=== PATIENT | female | born 1965 | race African-American/Black ===

== ENCOUNTER → 2016-09-25 | Outpatient (CLI) | payer MEDICARE, OTHER ==
--- NOTE | 2016-09-25 16:37 | XR ---
Right hip HISTORY: Right hip pain 2 views of the right hip No comparisons There is some marginal spurring present, joint space loss. Alignment and bone mineralization are main tained. There may be subchondral geode formation, difficult to exclude a small loose body or possibly nonunited ossification center at the lateral acetabulum. IMPRESSION: Mild osteoarthritis is suspected. CT or MRI may be of benefit. Additional findings above.
== END | disposition home or self-care (01) ==
LOC: RADXRMAIN 12:55
PROVIDERS: ATTEND Internal Medicine
DX: M25.551 Pain in right hip (principal)
CPT/HCPCS: 73502

== ENCOUNTER → 2016-10-03 | Outpatient (CLI) | payer MEDICARE, OTHER ==
--- NOTE | 2016-10-03 17:24 | CT ---
EXAMINATION TYPE: CT hip RT wo con DATE OF EXAM: 10/03/2016 1:49 PM COMPARISON: X-ray 09/25/2016 HISTORY: Rt hip pain, abn xray CT DLP: 334.6 mGycm Automated exposure control for dose reduction was used. FINDINGS: No acute fractures are evident. The femoral head articulates with the acetabulum. There is loss of manjit int space. Ossification is lateral to the acetabulum anterior border. No intracapsular calcification is identified. IMPRESSION: MODERATE OSTEOARTHRITIC DEGENERATIVE CHANGE RIGHT HIP
== END | disposition home or self-care (01) ==
LOC: RADCTMAIN 13:21
PROVIDERS: ATTEND Internal Medicine
DX: M16.11 Unilateral primary osteoarthritis, right hip (principal)

== ENCOUNTER 2016-10-15 23:02 | Emergency (ER) | payer MEDICARE, OTHER ==
[2016-10-15 23:06] VITALS: RESP 20
[2016-10-15] MEDS ORDERED: KETOROLAC 30 MG/ML 1 ML VIAL IVP STA (23:24)
[2016-10-15] MEDS ORDERED: SODIUM CHLORIDE 0.9% 1,000 ML IV STA (23:24)
[2016-10-15] MEDS ORDERED: ONDANSETRON 4 MG/2 ML VIAL IVP STA (23:24)
[2016-10-15] MEDS ORDERED: HYDROmorphone 1 MG/ML 1 ML SYRINGE IVP STA (23:24)
--- NOTE | 2016-10-15 23:31 | ED ---
Abdominal Pain HPI - General Chief Complaint: Abdominal Pain Stated Complaint: flank pain/vomiting Time Seen by Provider: 10/15/16 23:21 Source: patient, RN notes reviewed Mode of arrival: wheelchair Limitations: no limitations - History of Present Illness Initial Comments: 51-year-old female presents to the emergency Department chief complaint of left- sided flank pain. Patient states this started today. with NAUSEA VOMITING. PATIENT DENIES ANY CHANGES IN URINATION. PATIENT HAS NOT TENDON LEFT FLANK AREA. SHE HAS NOT NOTICED ANY BLOOD AND URINE SHE'S NEVER HAD ANYTHING LIKE THIS BEFORE. PATIENT STATES SHE TRIED RUNNERS WITH NO IMPROVEMENT. PATIENT STATES STABBING PAIN THAT IS CONSTANT AND SOMETIMES CRAMPING. Patient denies any recent fever, chills, shortness of breath, chest pain, back pain, numbness or tingling, dysuria or hematuria, constipation or diarrhea, headaches or visual changes, or any other current symptoms. - Related Data Home Medications Medication Instructions Recorded Confirmed Hydrochlorothiazide 25 mg PO DAILY 04/05/15 07/01/16 Phentermine HCl [Adipex-P] 37.5 mg PO QAM 04/05/15 07/01/16 metFORMIN HCL [Glucophage] 500 mg PO DAILY 04/05/15 07/01/16 ALPRAZolam [Xanax] 0.5 mg PO DAILY 05/04/16 07/01/16 Cyanocobalamin [Vitamin B-12 1,000 mcg IM Q30D 05/04/16 07/01/16 Injection] Cyanocobalamin [Vitamin B-12] 500 mcg PO DAILY 05/04/16 07/01/16 Hair/Skin/Nails 1 tab PO DAILY 05/04/16 07/01/16 Ibuprofen [Motrin] 800 mg PO Q8H PRN 05/04/16 07/01/16 HYDROcodone/APAP 10-325MG [[place] 1 tab PO Q6H PRN 10/15/16 10/15/16 10-325] Previous Rx's Medication Instructions Recorded Hydrocodone/Acetaminophen [[place] 1 each PO Q6HR PRN #20 tab 10/16/16 5-325] Ketorolac [Toradol] 10 mg PO Q6HR #20 tab 10/16/16 Ondansetron Odt [Zofran ODT] 4 mg PO Q8HR PRN #20 tab 10/16/16 Tamsulosin [Flomax] 0.4 mg PO DAILY #5 cap 10/16/16 Allergies Allergy/AdvReac Type Severity Reaction Status Date / Time Penicillins Allergy Unknown Verified 07/01/16 12:13 Review of Systems ROS Statement: Those systems with pertinent positive or pertinent negative responses have been documented in the HPI. ROS Other: All systems not noted in ROS Statement are negative. Past Medical History Past Medical History: No Reported History History of Any Multi-Drug Resistant Organisms: None Reported Past Surgical History: Joint Replacement, Orthopedic Surgery Additional Past Surgical History / Comment(s): uterine cyst Past Psychological History: No Psychological Hx Reported Smoking Status: Current every day smoker Past Alcohol Use History: None Reported Past Drug Use History: None Reported General Exam - General Exam Comments Initial Comments: General: The patient is awake and alert, in no distress, and does not appear acutely ill. Eye: Pupils are equal, round and reactive to light, extra-ocular movements are intact; there is normal conjunctiva bilaterally. No signs of icterus. Ears, nose, mouth and throat: There are moist mucous membranes. Neck: The neck is supple, there is no tenderness. Cardiovascular: There is a regular rate and rhythm. No murmur, rub or gallop is appreciated. Respiratory: Lungs are clear to auscultation, respirations are non-labored, breath sounds are equal. No wheezes, stridor, rales, or rhonchi. Gastrointestinal: Soft, non-distended, non-tender abdomen without masses or organomegaly noted. There is no rebound or guarding present. No CVA tenderness. Bowel sounds are unremarkable. Back: There is no tenderness to palpation in the midline. There is no obvious deformity. No rashes noted. Musculoskeletal: Normal ROM, no tenderness, There is no pedal edema. There is no calf tenderness or swelling. Sensation intact. Pulses equal bilaterally 2+. Neurological: CN II-XII intact, There are no obvious motor or sensory deficits. Coordination appears grossly intact. Speech is normal. Skin: Skin is warm and dry and no rashes or lesions are noted. Psychiatric: Cooperative, appropriate mood & affect, normal judgment. Limitations: no limitations Course Vital Signs 10/15/16 10/16/16 23:03 00:40 Temperature 96.8 F L 97.5 F L Pulse Rate 56 L 75 Respiratory 20 20 Rate Blood Pressure 150/112 123/72 O2 Sat by Pulse 100 Oximetry Medical Decision Making - Medical Decision Making 51-year-old female presents for left flank pain and nausea vomiting. At this time patient does appear to 3 mm stone. This time we discussed with her pain medication and nausea medication we discussed follow-up with urology and return parameters. Patient stated that she understood and she is agreeable with the plan. All questions have been answered. She will be discharged. - Lab Data Result diagrams: 10/16/16 00:30 10/16/16 00:30 Lab Results 10/16/16 10/16/16 10/16/16 Range/Units 00:30 00:30 01:30 WBC 14.9 H (3.8-10.6) k/uL RBC 3.76 L (3.80-5.40) m/uL Hgb 12.3 (11.4-16.0) gm/dL Hct 39.1 (34.0-46.0) % MCV 104.1 H (80.0-100.0) fL MCH 32.7 (25.0-35.0) pg MCHC 31.4 (31.0-37.0) g/dL RDW 12.5 (11.5-15.5) % Plt Count 212 (150-450) k/uL Neutrophils % 81 % Lymphocytes % 13 % Monocytes % 4 % Eosinophils % 0 % Basophils % 0 % Neutrophils # 12.1 H (1.3-7.7) k/uL Lymphocytes # 2.0 (1.0-4.8) k/uL Monocytes # 0.6 (0-1.0) k/uL Eosinophils # 0.1 (0-0.7) k/uL Basophils # 0.0 (0-0.2) k/uL Macrocytosis Slight Sodium 143 (137-145) mmol/L Potassium 4.0 (3.5-5.1) mmol/L Chloride 108 H (98-107) mmol/L Carbon Dioxide 20 L (22-30) mmol/L Anion Gap 15 mmol/L BUN 16 (7-17) mg/dL Creatinine 0.90 (0.52-1.04) mg/dL Est GFR (MDRD) Af Amer >60 (>60 ml/min/1.73 sqM) Est GFR (MDRD) Non-Af >60 (>60 ml/min/1.73 sqM) Glucose 141 H (74-99) mg/dL Calcium 9.7 (8.4-10.2) mg/dL Total Bilirubin 0.6 (0.2-1.3) mg/dL AST 23 (14-36) U/L ALT 36 (9-52) U/L Alkaline Phosphatase 88 (38-126) U/L Total Protein 7.2 (6.3-8.2) g/dL Albumin 4.2 (3.5-5.0) g/dL Urine Color Light Yellow Urine Appearance Clear (Clear) Urine pH 7.0 (5.0-8.0) Ur Specific [place] 1.006 (1.001-1.035) Urine Protein Negative (Negative) Urine Glucose (UA) Negative (Negative) Urine Ketones Negative (Negative) Urine Blood Large H (Negative) Urine Nitrate Negative (Negative) Urine Bilirubin Negative (Negative) Urine Urobilinogen <2.0 (<2.0) mg/dL Ur Leukocyte Esterase Negative (Negative) Urine RBC 14 H (0-5) /hpf Urine WBC 3 (0-5) /hpf Ur Squamous Epith Cells 7 H (0-4) /hpf Urine Mucus Rare H (None) /hpf - Radiology Data Radiology results: report reviewed, image reviewed Disposition Clinical Impression: Left ureteral stone Disposition: HOME SELF-CARE Condition: Stable Instructions: Kidney Stones (ED) Additional Instructions: Please use medication as discussed. Please follow up with family doctor if symptoms have not improved over the next two days. Please return to the emergency room if your symptoms increase or worsen or for any other concerns. Prescriptions: Hydrocodone/Acetaminophen [[place] 5-325] 1 each PO Q6HR PRN #20 tab PRN Reason: Pain Ketorolac [Toradol] 10 mg PO Q6HR #20 tab Ondansetron Odt [Zofran ODT] 4 mg PO Q8HR PRN #20 tab PRN Reason: Nausea Tamsulosin [Flomax] 0.4 mg PO DAILY #5 cap Referrals: Bee Rodriguez MD [Primary Care Provider] - 1-2 days Time of Disposition: 02:02
--- NOTE | 2016-10-16 00:48 | CT ---
EXAMINATION TYPE: CT abdomen pelvis wo con DATE OF EXAM: 10/16/2016 12:35 AM COMPARISON: NONE HISTORY: left flank pain CT DLP: 632.40 mGycm Automated exposure control for dose reduction was used. TECHNIQUE: Helical acquisition of images was performed from the lung bases through the pelvis. FINDINGS: Lung bases are clear. There is no pleural effusion. Heart size is normal. Liver spleen pancreas gallbladder appear normal. Bile ducts are not dilated. There is no adrenal mass . Kidneys have normal size and contour. There is a 3 mm calcification in the proximal left ureter at the ureteropelvic junction. There is mild left-sided hydronephrosis. There is no retroperitoneal jass opathy. There is no ascites. Appendix appears normal. There is metal artifact from left hip prosthesi s. There is no sign of a pelvic mass. I see no bony destructive process. Bladder appears normal. IMPRESSION: THERE IS A SMALL STONE OBSTRUCTING THE LEFT UPPER COLLECTING SYSTEM NEAR THE URETEROPELVIC JUNCTION. MILD LEFT-SIDED HYDRONEPHROSIS.
[2016-10-16 00:59] LABS: Anion Gap 15 mmol/L; Calcium 9.7 mg/dL (8.4-10.2); Carbon Dioxide 20 mmol/L (22-30); Chloride 108 mmol/L (98-107); Glucose 141 mg/dL (74-99); Non-African American GFR(MDRD) >60 (>60 ml/min/1.73 sqM); Sodium 143 mmol/L (137-145); Total Bilirubin 0.6 mg/dL (0.2-1.3); Total Protein 7.2 g/dL (6.3-8.2)
[2016-10-16 01:00] LABS: Basophils % (A) 0 %; CH 33.6; CHCM 32.4; Eosinophils # (A) 0.1 k/uL (0-0.7); Eosinophils % (A) 0 %; HCT 39.1 % (34.0-46.0); HDW 2.02; HGB 12.3 gm/dL (11.4-16.0); Luc % (Auto) 1; Lymphocytes % (A) 13 %; MCH 32.7 pg (25.0-35.0); MCHC 31.4 g/dL (31.0-37.0); MCV 104.1 fL (80.0-100.0); Macrocytosis Slight; Mean Platelet Volume 9.1; Monocytes # (A) 0.6 k/uL (0-1.0); Monocytes % (A) 4 %; Neutrophils # (A) 12.1 k/uL (1.3-7.7); Neutrophils % (A) 81 %; RBC 3.76 m/uL (3.80-5.40); RDW 12.5 % (11.5-15.5); WBC 14.9 k/uL (3.8-10.6); WBC (Perox) 16.19
[2016-10-16 01:01] LABS: ALT 36 U/L (9-52); AST 23 U/L (14-36); Alkaline Phosphatase 88 U/L (38-126); Blood Urea Nitrogen 16 mg/dL (7-17)
[2016-10-16 01:52] LABS: Appearance,Urine Clear (Clear); Bilirubin,Urine Negative (Negative); Glucose,Urine (UA) Negative (Negative); Ketones,Urine Negative (Negative); Leukocyte Esterase,Urine Negative (Negative); Mucus,Urine Rare /hpf; Nitrite,Urine Negative (Negative); Particle Count 2253; Protein,Urine Negative (Negative); RBC,Urine 14 /hpf (0-5); Specific Gravity,Urine 1.006 (1.001-1.035); Squamous Epithelial Cell,Urine 7 /hpf (0-4); UA Billing (MACRO vs. MICRO) MICRO; Urobilinogen,Urine <2.0 mg/dL (<2.0); WBC,Urine 3 /hpf (0-5)
[2016-10-16 02:08] VITALS: BP 128/72; PULSE 82
[2016-10-16] MEDS ORDERED: HYDROmorphone 1 MG/ML 1 ML SYRINGE IM STA (02:13)
[2016-10-16 02:31] VITALS: TEMP 97.4
== END 2016-10-16 02:31 | disposition home or self-care (01) ==
LOC: EC 23:02
DX: N13.2 Hydronephrosis with renal and ureteral calculous obstruction (principal); F17.200 Nicotine dependence, unspecified, uncomplicated; Z79.84 Long term (current) use of oral hypoglycemic drugs; Z79.899 Other long term (current) drug therapy; Z88.0 Allergy status to penicillin
CPT/HCPCS: 36415; 80053; 85025; 81001; 87040; 87086; 74176; 99284; 96374; 96375 ×2; 96361; 96372; J2405; J1885; J1170; 74000; 80048

== ENCOUNTER 2016-10-16 15:53 | Emergency (ER) | payer MEDICARE, OTHER ==
[2016-10-16] MEDS ORDERED: HYDROmorphone 1 MG/ML 1 ML SYRINGE IVP STA (17:02)
[2016-10-16] MEDS ORDERED: ONDANSETRON 4 MG/2 ML VIAL IVP STA (17:02)
[2016-10-16] MEDS ORDERED: SODIUM CHLORIDE 0.9% 1,000 ML IV STA (17:02)
[2016-10-16] MEDS ORDERED: KETOROLAC 30 MG/ML 1 ML VIAL IVP STA (17:02)
--- NOTE | 2016-10-16 17:03 | ED ---
General Adult HPI - General Chief complaint: Abdominal Pain Stated complaint: kidney stone Revisit Time Seen by Provider: 10/16/16 16:53 Source: patient, RN notes reviewed, old records reviewed Mode of arrival: ambulatory Limitations: no limitations - History of Present Illness Initial comments: Patient is a 51-year-old female who presents emergency room today with a chief complaint of increased left flank pain. She does not that that symptoms started yesterday. Was seen here the emergency room diagnosed with a kidney stone. She does admit that she was on her way home driving when the pain increased once again. He states she's had episodes of nausea vomiting with increased pain in the left flank area. Patient denies any other complaints associated symptoms. Patient denies any recent fever, chills, shortness of breath, chest pain, numbness or tingling, dysuria or hematuria, constipation or diarrhea, headaches or visual changes, or any other complaints. - Related Data Home Medications Medication Instructions Recorded Confirmed Hydrochlorothiazide 25 mg PO DAILY PRN 04/05/15 10/16/16 metFORMIN HCL [Glucophage] 500 mg PO W/SUPPER 04/05/15 10/16/16 Cyanocobalamin [Vitamin B-12 1,000 mcg IM Q28D 05/04/16 10/16/16 Injection] Cyanocobalamin [Vitamin B-12] 500 mcg PO DAILY 05/04/16 10/16/16 Ibuprofen [Motrin] 800 mg PO Q8H PRN 05/04/16 10/16/16 HYDROcodone/APAP 10-325MG [[place] 1 tab PO TID PRN 10/15/16 10/16/16 10-325] ALPRAZolam [Xanax] 1 mg PO DAILY PRN 10/16/16 10/16/16 Albuterol Inhaler [Ventolin Hfa 2 puff INHALATION RT-Q6H PRN 10/16/16 10/16/16 Inhaler] Ergocalciferol [Vitamin D2] 50,000 unit PO MO 10/16/16 10/16/16 Pantoprazole Sodium [Protonix] 40 mg PO DAILY 10/16/16 10/16/16 Promethazine HCl/Codeine 5 ml PO Q8H PRN 10/16/16 10/16/16 [Prometh-Codein 6.25-10 mg/5 ml] traMADol HCL [Ultram] 50 mg PO Q6HR PRN 10/16/16 10/16/16 Allergies Allergy/AdvReac Type Severity Reaction Status Date / Time Penicillins Allergy Unknown Verified 10/16/16 18:09 Review of Systems ROS Statement: Those systems with pertinent positive or pertinent negative responses have been documented in the HPI. ROS Other: All systems not noted in ROS Statement are negative. Past Medical History Past Medical History: No Reported History History of Any Multi-Drug Resistant Organisms: None Reported Past Surgical History: Joint Replacement, Orthopedic Surgery Additional Past Surgical History / Comment(s): uterine cyst Past Psychological History: No Psychological Hx Reported Smoking Status: Current every day smoker Past Alcohol Use History: None Reported Past Drug Use History: None Reported General Exam - General Exam Comments Initial Comments: General: The patient is awake and alert, in mild distress. Eye: Pupils are equal, round and reactive to light, extra-ocular movements are intact. No nystagmus. There is normal conjunctiva bilaterally. No signs of icterus. Ears, nose, mouth and throat: There are moist mucous membranes and no oral lesions. Neck: The neck is supple, there is no tenderness or JVD. Cardiovascular: There is a regular rate and rhythm. No murmur, rub or gallop is appreciated. Respiratory: Lungs are clear to auscultation, respirations are non-labored, breath sounds are equal. No wheezes, stridor, rales, or rhonchi. Gastrointestinal: Soft, non-distended, non-tender abdomen without masses or organomegaly noted. There is no rebound or guarding present. No CVA tenderness. Bowel sounds are unremarkable. Musculoskeletal: Normal ROM, no tenderness. Strength 5/5. Sensation intact. Pulses equal bilaterally 2+. Neurological: A&O x 3. CN II-XII intact, There are no obvious motor or sensory deficits. Coordination appears grossly intact. Speech is normal. Skin: Skin is warm and dry and no rashes or lesions are noted. Psychiatric: Cooperative, appropriate mood & affect, normal judgment. Limitations: no limitations Course Vital Signs 10/16/16 16:01 Temperature 98.9 F Pulse Rate 63 Respiratory 22 Rate Blood Pressure 161/85 O2 Sat by Pulse 95 Oximetry Medical Decision Making - Medical Decision Making Patient reexamined at this time shows no signs of distress. She states she is feeling better here in the emergency room. Patient's labs been reviewed to 16, 000 white count of 14 yesterday. Has had several episodes of nausea vomiting throughout the day prior to arrival. Patient does admit to being under pain contract. Did not pain medication filled. Patient advised to follow-up about pain medications but is advised to fill her Zofran and Flomax for her symptoms. Advised follow-up family doctor and also urologist if symptoms persist. Advised return to emergency room if any symptoms increase worsen or for any other concerns. - Lab Data Result diagrams: 10/16/16 17:18 10/16/16 17:18 Lab Results 10/16/16 10/16/16 10/16/16 Range/Units 15:26 17:18 17:18 WBC 16.6 H (3.8-10.6) k/uL RBC 3.83 (3.80-5.40) m/uL Hgb 12.6 (11.4-16.0) gm/dL Hct 39.9 (34.0-46.0) % MCV 104.2 H (80.0-100.0) fL MCH 32.9 (25.0-35.0) pg MCHC 31.6 (31.0-37.0) g/dL RDW 12.6 (11.5-15.5) % Plt Count 237 (150-450) k/uL Neutrophils % 80 % Lymphocytes % 13 % Monocytes % 4 % Eosinophils % 1 % Basophils % 0 % Neutrophils # 13.3 H (1.3-7.7) k/uL Lymphocytes # 2.2 (1.0-4.8) k/uL Monocytes # 0.7 (0-1.0) k/uL Eosinophils # 0.2 (0-0.7) k/uL Basophils # 0.1 (0-0.2) k/uL Macrocytosis Slight Sodium 146 H (137-145) mmol/L Potassium 4.3 (3.5-5.1) mmol/L Chloride 108 H (98-107) mmol/L Carbon Dioxide 26 (22-30) mmol/L Anion Gap 12 mmol/L BUN 18 H (7-17) mg/dL Creatinine 0.90 (0.52-1.04) mg/dL Est GFR (MDRD) Af Amer >60 (>60 ml/min/1.73 sqM) Est GFR (MDRD) Non-Af >60 (>60 ml/min/1.73 sqM) Glucose 103 H (74-99) mg/dL Calcium 10.3 H (8.4-10.2) mg/dL Urine Color Yellow Urine Appearance Clear (Clear) Urine pH 6.5 (5.0-8.0) Ur Specific [place] 1.013 (1.001-1.035) Urine Protein Trace H (Negative) Urine Glucose (UA) Negative (Negative) Urine Ketones Negative (Negative) Urine Blood Large H (Negative) Urine Nitrate Negative (Negative) Urine Bilirubin Negative (Negative) Urine Urobilinogen <2.0 (<2.0) mg/dL Ur Leukocyte Esterase Negative (Negative) Urine RBC >182 H (0-5) /hpf Urine WBC 11 H (0-5) /hpf Ur Squamous Epith Cells <1 (0-4) /hpf Urine Bacteria Rare H (None) /hpf Urine Mucus Occasional H (None) /hpf Disposition Clinical Impression: Kidney stone Disposition: HOME SELF-CARE Condition: Good Instructions: Kidney Stones (ED) Additional Instructions: Please follow-up the family doctor and urologist for your symptoms next 1-2 days. Please return here to the emergency room if any symptoms increase or worsen or for any other concerns. Referrals: Bee Rodriguez MD [Primary Care Provider] - 1-2 days Kaleb Degroot MD [STAFF PHYSICIAN] - 1-2 days Time of Disposition: 18:29
[2016-10-16 17:29] LABS: Basophils # (A) 0.1 k/uL (0-0.2); Basophils % (A) 0 %; CH 33.7; CHCM 32.5; Eosinophils # (A) 0.2 k/uL (0-0.7); Eosinophils % (A) 1 %; HCT 39.9 % (34.0-46.0); HDW 2.08; HGB 12.6 gm/dL (11.4-16.0); Luc # (Auto) 0.12; Luc % (Auto) 1; Lymphocytes # (A) 2.2 k/uL (1.0-4.8); Lymphocytes % (A) 13 %; MCH 32.9 pg (25.0-35.0); MCHC 31.6 g/dL (31.0-37.0); MCV 104.2 fL (80.0-100.0); Macrocytosis Slight; Mean Platelet Volume 8.8; Monocytes # (A) 0.7 k/uL (0-1.0); Monocytes % (A) 4 %; Neutrophils # (A) 13.3 k/uL (1.3-7.7); Neutrophils % (A) 80 %; RBC 3.83 m/uL (3.80-5.40); RDW 12.6 % (11.5-15.5); WBC 16.6 k/uL (3.8-10.6); WBC (Perox) 16.96
[2016-10-16 17:41] LABS: Anion Gap 12 mmol/L; Blood Urea Nitrogen 18 mg/dL (7-17); Calcium 10.3 mg/dL (8.4-10.2); Carbon Dioxide 26 mmol/L (22-30); Chloride 108 mmol/L (98-107); Glucose 103 mg/dL (74-99); Non-African American GFR(MDRD) >60 (>60 ml/min/1.73 sqM); Potassium 4.3 mmol/L (3.5-5.1); Sodium 146 mmol/L (137-145)
[2016-10-16 17:49] LABS: Appearance,Urine Clear (Clear); Bacteria,Urine Rare /hpf; Bilirubin,Urine Negative (Negative); Glucose,Urine (UA) Negative (Negative); Ketones,Urine Negative (Negative); Leukocyte Esterase,Urine Negative (Negative); Mucus,Urine Occasional /hpf; Nitrite,Urine Negative (Negative); PH, Urine 6.5 (5.0-8.0); Particle Count 2256; Protein,Urine Trace (Negative); RBC,Urine >182 /hpf (0-5); Specific Gravity,Urine 1.013 (1.001-1.035); Squamous Epithelial Cell,Urine <1 /hpf (0-4); UA Billing (MACRO vs. MICRO) MICRO; Urobilinogen,Urine <2.0 mg/dL (<2.0); WBC,Urine 11 /hpf (0-5)
[2016-10-16 18:48] VITALS: BP 142/65; PULSE 65; RESP 18; TEMP 98.2
--- NOTE | 2016-10-17 07:21 | XR ---
EXAMINATION TYPE: XR KUB DATE OF EXAM: 10/16/2016 5:36 PM COMPARISON: CT abdomen and pelvis dated 10/16/2016 HISTORY: Left filling pain and left upper pole obstructing calculus TECHNIQUE: Single radiographic view of the abdomen was obtained in upright position (KUB projection). FINDINGS: The previously seen small calculus in the left upper pole ureteropelvic junction is not vis ualized on this examination and may have been passed or a be obstructed due to overlying fecal materi al within the transverse colon. No other radiopaque calculi are present. There is a nonobstructive selvin wel gas pattern. No evidence of organomegaly. Postsurgical fixation screw is seen overlying the left iliac wing. No evidence of acute fracture or dislocation. 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 IMPRESSION: Nonvisualization of the previously seen left calculus at the ureteropelvic junction, whic h may have been passed in the interim or obstructed by overlying stool.
== END 2016-10-16 18:48 | disposition home or self-care (01) ==
LOC: EC 15:53
DX: N20.1 Calculus of ureter (principal); Z79.899 Other long term (current) drug therapy; Z88.0 Allergy status to penicillin; F17.200 Nicotine dependence, unspecified, uncomplicated
CPT/HCPCS: 36415; 80048; 85025; 81001; 74000; 99284; 96374; 96375; 96361; J2405; J1885; J1170

== ENCOUNTER 2016-10-17 06:30 | Emergency (ER) | payer MEDICARE, OTHER ==
[2016-10-17] MEDS ORDERED: SODIUM CHLORIDE 0.9% 1,000 ML IV STA ×2 (06:43→08:09)
[2016-10-17] MEDS ORDERED: HYDROmorphone 1 MG/ML 1 ML SYRINGE IVP STA (06:43)
[2016-10-17] MEDS ORDERED: KETOROLAC 30 MG/ML 1 ML VIAL IVP STA (06:43)
[2016-10-17] MEDS ORDERED: ONDANSETRON 4 MG/2 ML VIAL IVP STA (06:43)
--- NOTE | 2016-10-17 06:46 | ED ---
General Adult HPI - General Source: RN notes reviewed <Wilner Nava - Last Filed: 10/17/16 06:46> <Wilner Ha - Last Filed: 10/17/16 08:24> - General Stated complaint: Flank/Abdominal Pain Time Seen by Provider: 10/17/16 06:35 - History of Present Illness Initial comments: This is a 51-year-old female who presents to the emergency department complaining of left-sided flank pain. Patient states she was diagnosed by CAT scan 2 days ago with a kidney stone in the left flank. Patient states she's at home taking pain medication however she started to vomit and is unable to keep her pain medicine down. Patient denies any abdominal pain patient denies any diarrhea. Patient denies any recent fever chills or cough. Patient denies having had a previous history of kidney stones. Patient has been in the ER the last 2 days. (Wilner Nava) - Related Data Home Medications Medication Instructions Recorded Confirmed Hydrochlorothiazide 25 mg PO DAILY PRN 04/05/15 10/17/16 metFORMIN HCL [Glucophage] 500 mg PO W/SUPPER 04/05/15 10/17/16 Cyanocobalamin [Vitamin B-12 1,000 mcg IM Q28D 05/04/16 10/17/16 Injection] Cyanocobalamin [Vitamin B-12] 500 mcg PO DAILY 05/04/16 10/17/16 Ibuprofen [Motrin] 800 mg PO Q8H PRN 05/04/16 10/17/16 HYDROcodone/APAP 10-325MG [[place] 1 tab PO TID PRN 10/15/16 10/17/16 10-325] ALPRAZolam [Xanax] 1 mg PO DAILY PRN 10/16/16 10/17/16 Albuterol Inhaler [Ventolin Hfa 2 puff INHALATION RT-Q6H PRN 10/16/16 10/17/16 Inhaler] Ergocalciferol [Vitamin D2] 50,000 unit PO MO 10/16/16 10/17/16 Pantoprazole Sodium [Protonix] 40 mg PO DAILY 10/16/16 10/17/16 Promethazine HCl/Codeine 5 ml PO Q8H PRN 10/16/16 10/17/16 [Prometh-Codein 6.25-10 mg/5 ml] traMADol HCL [Ultram] 50 mg PO Q6HR PRN 10/16/16 10/17/16 Allergies Allergy/AdvReac Type Severity Reaction Status Date / Time Penicillins Allergy Unknown Verified 10/17/16 06:47 Review of Systems ROS Other: All systems not noted in ROS Statement are negative. <Wilner Nava - Last Filed: 10/17/16 06:46> ROS Other: All systems not noted in ROS Statement are negative. <Wilner Ha - Last Filed: 10/17/16 08:24> ROS Statement: Those systems with pertinent positive or pertinent negative responses have been documented in the HPI. Past Medical History Past Medical History: No Reported History History of Any Multi-Drug Resistant Organisms: None Reported Past Surgical History: Joint Replacement, Orthopedic Surgery Additional Past Surgical History / Comment(s): uterine cyst Past Psychological History: No Psychological Hx Reported Smoking Status: Current every day smoker Past Alcohol Use History: None Reported Past Drug Use History: None Reported <Wilner Nava - Last Filed: 10/17/16 06:46> General Exam <Wilner Nava - Last Filed: 10/17/16 06:46> <Wilner Ha - Last Filed: 10/17/16 08:24> - General Exam Comments Initial Comments: GENERAL: Patient is well-developed and well-nourished. Patient is nontoxic and well- hydrated and is in moderate distress. ENT: Neck is soft and supple. No significant lymphadenopathy is noted. Oropharynx is clear. Moist mucous membranes. Neck has full range of motion without eliciting any pain. EYES: The sclera were anicteric and conjunctiva were pink and moist. Extraocular movements were intact and pupils were equal round and reactive to light. Eyelids were unremarkable. PULMONARY: Unlabored respirations. Good breath sounds bilaterally. No audible rales rhonchi or wheezing was noted. CARDIOVASCULAR: There is a regular rate and rhythm without any murmurs gallops or rubs. ABDOMEN: Soft and nontender with normal bowel sounds. No palpable organomegaly was noted. There is no palpable pulsatile mass. SKIN: Skin is clear with no lesions or rashes and otherwise unremarkable. NEUROLOGIC: Patient is alert and oriented x3. Cranial nerves II through XII are grossly intact. Motor and sensory are also intact. Normal speech, volume and content. Symmetrical smile. MUSCULOSKELETAL: Normal extremities with adequate strength and full range of motion. LYMPHATICS: No significant lymphadenopathy is noted PSYCHIATRIC: Normal psychiatric evaluation. (Wilner Nava) Medical Decision Making <Wilner Nava - Last Filed: 10/17/16 06:46> - Lab Data Result diagrams: 10/17/16 06:48 10/17/16 06:48 - Radiology Data Radiology results: report reviewed, image reviewed <Wilner Ha - Last Filed: 10/17/16 08:24> - Medical Decision Making Dr. Ha will be taking over the care of this patient at 7 AM (Wilner Nava) 51 female here for evaluation of kidney stone, left-sided kidney stone. Urine negative, mildly dehydrated given fluid resuscitation discharged home (Wilner Ha) - Lab Data Lab Results 10/17/16 10/17/16 10/17/16 Range/Units 06:48 06:48 07:45 WBC 18.4 H (3.8-10.6) k/uL RBC 3.99 (3.80-5.40) m/uL Hgb 13.2 (11.4-16.0) gm/dL Hct 41.5 (34.0-46.0) % MCV 104.0 H (80.0-100.0) fL MCH 33.2 (25.0-35.0) pg MCHC 31.9 (31.0-37.0) g/dL RDW 12.4 (11.5-15.5) % Plt Count 247 (150-450) k/uL Neutrophils % 75 % Lymphocytes % 17 % Monocytes % 5 % Eosinophils % 1 % Basophils % 0 % Neutrophils # 13.7 H (1.3-7.7) k/uL Lymphocytes # 3.2 (1.0-4.8) k/uL Monocytes # 0.9 (0-1.0) k/uL Eosinophils # 0.3 (0-0.7) k/uL Basophils # 0.0 (0-0.2) k/uL Macrocytosis Slight Sodium 146 H (137-145) mmol/L Potassium 3.8 (3.5-5.1) mmol/L Chloride 109 H (98-107) mmol/L Carbon Dioxide 25 (22-30) mmol/L Anion Gap 12 mmol/L BUN 16 (7-17) mg/dL Creatinine 1.16 H (0.52-1.04) mg/dL Est GFR (MDRD) Af Amer 59 (>60 ml/min/1.73 sqM) Est GFR (MDRD) Non-Af 49 (>60 ml/min/1.73 sqM) Glucose 114 H (74-99) mg/dL Calcium 10.0 (8.4-10.2) mg/dL Total Bilirubin 0.6 (0.2-1.3) mg/dL AST 25 (14-36) U/L ALT 37 (9-52) U/L Alkaline Phosphatase 98 (38-126) U/L Total Protein 7.9 (6.3-8.2) g/dL Albumin 4.6 (3.5-5.0) g/dL Urine Color Yellow Urine Appearance Cloudy H (Clear) Urine pH 6.0 (5.0-8.0) Ur Specific [place] 1.017 (1.001-1.035) Urine Protein 1+ H (Negative) Urine Glucose (UA) Negative (Negative) Urine Ketones Negative (Negative) Urine Blood Large H (Negative) Urine Nitrate Negative (Negative) Urine Bilirubin Negative (Negative) Urine Urobilinogen 2.0 (<2.0) mg/dL Ur Leukocyte Esterase Small H (Negative) Urine RBC >182 H (0-5) /hpf Urine WBC 10 H (0-5) /hpf Calcium Oxalate Crystal Occasional H (None) /hpf Hyaline Casts 10 H (0-2) /lpf Urine Mucus Many H (None) /hpf Disposition <Wilner Nava - Last Filed: 10/17/16 06:46> <Wilner Ha - Last Filed: 10/17/16 08:24> Clinical Impression: Left ureteral stone, Kidney stone Disposition: HOME SELF-CARE Condition: Good Instructions: Kidney Stones (ED), Renal Colic (ED) Referrals: Bee Rodriguez MD [Primary Care Provider] - 1-2 days
[2016-10-17 07:00] LABS: Basophils % (A) 0 %; CH 33.7; CHCM 32.5; Eosinophils # (A) 0.3 k/uL (0-0.7); Eosinophils % (A) 1 %; HCT 41.5 % (34.0-46.0); HDW 2.01; HGB 13.2 gm/dL (11.4-16.0); Luc # (Auto) 0.27; Luc % (Auto) 2; Lymphocytes # (A) 3.2 k/uL (1.0-4.8); Lymphocytes % (A) 17 %; MCH 33.2 pg (25.0-35.0); MCHC 31.9 g/dL (31.0-37.0); Macrocytosis Slight; Mean Platelet Volume 8.1; Monocytes # (A) 0.9 k/uL (0-1.0); Monocytes % (A) 5 %; Neutrophils # (A) 13.7 k/uL (1.3-7.7); Neutrophils % (A) 75 %; RBC 3.99 m/uL (3.80-5.40); RDW 12.4 % (11.5-15.5); WBC 18.4 k/uL (3.8-10.6); WBC (Perox) 18.21
[2016-10-17 07:09] LABS: Potassium 3.8 mmol/L (3.5-5.1); Total Bilirubin 0.6 mg/dL (0.2-1.3); Total Protein 7.9 g/dL (6.3-8.2)
[2016-10-17] MEDS ORDERED: SODIUM CHLORIDE 0.9% 500 ML IV STA (08:09)
--- NOTE | 2016-10-17 08:14 | XR ---
Abdomen HISTORY: Ureteral calculus, left flank pain Single frontal view of the abdomen Correlation to CT abdomen pelvis and abdomen film September Overlying bowel gas may obscure detail. Proximal left ureteral calculus may still be present. No othe r significant interval change. IMPRESSION: Difficult to exclude proximal ureteral calculus on the left.
[2016-10-17 08:17] LABS: Appearance,Urine Cloudy (Clear); Bilirubin,Urine Negative (Negative); Calcium Oxalate Crystals,Urine Occasional /hpf; Glucose,Urine (UA) Negative (Negative); Ketones,Urine Negative (Negative); Leukocyte Esterase,Urine Small (Negative); Mucus,Urine Many /hpf; Nitrite,Urine Negative (Negative); Particle Count 10989; Protein,Urine 1+ (Negative); RBC,Urine >182 /hpf (0-5); Specific Gravity,Urine 1.017 (1.001-1.035); UA Billing (MACRO vs. MICRO) MICRO; WBC,Urine 10 /hpf (0-5)
[2016-10-17 09:48] VITALS: BP 119/63; PULSE 90; RESP 20; TEMP 98
== END 2016-10-17 09:46 | disposition home or self-care (01) ==
LOC: EC 06:30
DX: N20.2 Calculus of kidney with calculus of ureter (principal); E86.0 Dehydration; Z79.84 Long term (current) use of oral hypoglycemic drugs; Z79.899 Other long term (current) drug therapy; Z88.0 Allergy status to penicillin; F17.200 Nicotine dependence, unspecified, uncomplicated
CPT/HCPCS: 96374 ×2; 96375 ×3; 96361 ×3; 99284 ×2; 99283; 36415; 80053; 85025; 81001; 74000; J2405; J1885; J1170

== ENCOUNTER 2016-10-17 21:10 | Emergency (ER) | payer MEDICARE, OTHER ==
[2016-10-17 21:22] VITALS: RESP 18
[2016-10-17] MEDS ORDERED: HYDROmorphone 1 MG/ML 1 ML SYRINGE IVP STA (22:15)
[2016-10-17] MEDS ORDERED: KETOROLAC 30 MG/ML 1 ML VIAL IVP STA (22:15)
[2016-10-17] MEDS ORDERED: ONDANSETRON 4 MG/2 ML VIAL IVP STA (22:15)
--- NOTE | 2016-10-17 22:27 | ED ---
Abdominal Pain HPI - General Chief Complaint: Abdominal Pain Stated Complaint: Kidney Stones Time Seen by Provider: 10/17/16 22:08 Source: patient, RN notes reviewed Mode of arrival: wheelchair Limitations: no limitations - History of Present Illness Initial Comments: 51-year-old female presents emergency Department chief complaint left flank pain. Patient states that she's been diagnosed with kidney stone. Patient states that she's had multiple visits. Patient states she continues to vomit even after taken Zofran. Patient states she takes chronic pain and [place] 10/ 325 daily for chronic knee pain. Patient states she is on disability. Patient states she did schedule 0.[address] Rodriguez primary care physician though did not contact urology. Patient denies fever, chills. - Related Data Home Medications Medication Instructions Recorded Confirmed Hydrochlorothiazide 25 mg PO DAILY PRN 04/05/15 10/17/16 metFORMIN HCL [Glucophage] 500 mg PO W/SUPPER 04/05/15 10/17/16 Cyanocobalamin [Vitamin B-12 1,000 mcg IM Q28D 05/04/16 10/17/16 Injection] Cyanocobalamin [Vitamin B-12] 500 mcg PO DAILY 05/04/16 10/17/16 Ibuprofen [Motrin] 800 mg PO Q8H PRN 05/04/16 10/17/16 HYDROcodone/APAP 10-325MG [[place] 1 tab PO TID PRN 10/15/16 10/17/16 10-325] ALPRAZolam [Xanax] 1 mg PO DAILY PRN 10/16/16 10/17/16 Albuterol Inhaler [Ventolin Hfa 2 puff INHALATION RT-Q6H PRN 10/16/16 10/17/16 Inhaler] Ergocalciferol [Vitamin D2] 50,000 unit PO MO 10/16/16 10/17/16 Pantoprazole Sodium [Protonix] 40 mg PO DAILY 10/16/16 10/17/16 Promethazine HCl/Codeine 5 ml PO Q8H PRN 10/16/16 10/17/16 [Prometh-Codein 6.25-10 mg/5 ml] traMADol HCL [Ultram] 50 mg PO Q6HR PRN 10/16/16 10/17/16 Previous Rx's Medication Instructions Recorded Metoclopramide [Reglan] 10 mg PO TID PRN #15 tab 10/17/16 Allergies Allergy/AdvReac Type Severity Reaction Status Date / Time Penicillins Allergy Unknown Verified 10/17/16 21:48 Review of Systems ROS Statement: Those systems with pertinent positive or pertinent negative responses have been documented in the HPI. ROS Other: All systems not noted in ROS Statement are negative. Past Medical History Past Medical History: Hyperlipidemia, Hypertension Additional Past Medical History / Comment(s): kidney stones History of Any Multi-Drug Resistant Organisms: None Reported Past Surgical History: Joint Replacement, Orthopedic Surgery Additional Past Surgical History / Comment(s): uterine cyst, hip and knee replacement Past Psychological History: No Psychological Hx Reported Smoking Status: Current every day smoker Past Alcohol Use History: None Reported Past Drug Use History: None Reported General Exam Limitations: no limitations General appearance: alert, in no apparent distress Head exam: Present: atraumatic, normocephalic, normal inspection Respiratory exam: Present: normal lung sounds bilaterally. Absent: respiratory distress, wheezes, rales, rhonchi, stridor Cardiovascular Exam: Present: regular rate, normal rhythm, normal heart sounds. Absent: systolic murmur, diastolic murmur, rubs, gallop, clicks GI/Abdominal exam: Present: soft, normal bowel sounds. Absent: distended, tenderness, guarding, rebound, rigid Back exam: Absent: CVA tenderness (R), CVA tenderness (L) Course Vital Signs 10/17/16 21:19 Temperature 99.2 F Pulse Rate 69 Respiratory 18 Rate Blood Pressure 175/95 O2 Sat by Pulse 98 Oximetry Medical Decision Making - Medical Decision Making 51-year-old female presented for left flank pain. Patient has had a diagnosis [address] Patient had multiple repeat lab work. Patient medical records were reviewed. Patient's pain is under control and will be discharged. She is advised to follow-up with urologist tomorrow that they are to perform further action for her kidney stone. Patient does take chronic pain meds in which she may follow-up with her primary care physician for stronger pain meds. Disposition Clinical Impression: Left ureteral stone Disposition: HOME SELF-CARE Condition: Stable Instructions: Kidney Stones (ED) Additional Instructions: Please follow-up with the urologist tomorrow morning as directed.Please return to the Emergency Department if symptoms worsen or any other concerns. Prescriptions: Metoclopramide [Reglan] 10 mg PO TID PRN #15 tab PRN Reason: GERD Referrals: Bee Rodriguez MD [Primary Care Provider] - 1-2 days Time of Disposition: 22:36
[2016-10-17 23:15] VITALS: BP 144/97; PULSE 83; TEMP 98
== END 2016-10-17 23:26 | disposition home or self-care (01) ==
LOC: EC 21:10
DX: N20.1 Calculus of ureter (principal); Z87.442 Personal history of urinary calculi; F17.200 Nicotine dependence, unspecified, uncomplicated; Z79.899 Other long term (current) drug therapy; Z88.0 Allergy status to penicillin
CPT/HCPCS: 99283; 96374; 96375 ×2; J2405; J1170; J1885

== ENCOUNTER → 2017-02-22 | Outpatient (CLI) | payer MEDICARE, OTHER ==
[2017-02-22 14:19] LABS: Appearance,Urine Cloudy (Clear); Bacteria,Urine Rare /hpf; Bilirubin,Urine Negative (Negative); Glucose,Urine (UA) Negative (Negative); Ketones,Urine Negative (Negative); Leukocyte Esterase,Urine Negative (Negative); Mucus,Urine Occasional /hpf; Nitrite,Urine Negative (Negative); Particle Count 4202; Protein,Urine Trace (Negative); RBC,Urine 1 /hpf (0-5); Specific Gravity,Urine 1.023 (1.001-1.035); Squamous Epithelial Cell,Urine 10 /hpf (0-4); UA Billing (MACRO vs. MICRO) MICRO; Urobilinogen,Urine <2.0 mg/dL (<2.0); WBC,Urine 1 /hpf (0-5)
[2017-02-22 14:20] LABS: Basophils % (A) 0 %; CH 33.8; CHCM 31.9; Eosinophils # (A) 0.2 k/uL (0-0.7); Eosinophils % (A) 3 %; HCT 39.6 % (34.0-46.0); HDW 1.96; HGB 12.8 gm/dL (11.4-16.0); Luc # (Auto) 0.19; Luc % (Auto) 2; Lymphocytes # (A) 3.4 k/uL (1.0-4.8); Lymphocytes % (A) 39 %; MCH 34.4 pg (25.0-35.0); MCHC 32.2 g/dL (31.0-37.0); MCV 106.7 fL (80.0-100.0); Macrocytosis Moderate; Mean Platelet Volume 8.7; Monocytes # (A) 0.4 k/uL (0-1.0); Monocytes % (A) 5 %; Neutrophils # (A) 4.3 k/uL (1.3-7.7); Neutrophils % (A) 51 %; RBC 3.72 m/uL (3.80-5.40); RDW 12.9 % (11.5-15.5); WBC 8.5 k/uL (3.8-10.6)
[2017-02-22 14:30] LABS: INR 1.1 (<1.1)
[2017-02-22 14:31] LABS: Anion Gap 11 mmol/L; Blood Urea Nitrogen 14 mg/dL (7-17); Calcium 9.9 mg/dL (8.4-10.2); Carbon Dioxide 22 mmol/L (22-30); Chloride 108 mmol/L (98-107); Glucose 116 mg/dL (74-99); Non-African American GFR(MDRD) >60 (>60 ml/min/1.73 sqM); Partial Thromboplastin Time 24.4 sec (22.0-30.0); Potassium 3.8 mmol/L (3.5-5.1); Prothrombin Time 10.8 sec (9.0-12.0); Sodium 141 mmol/L (137-145)
--- NOTE | 2017-02-22 16:00 | XR ---
EXAMINATION TYPE: XR chest 2V DATE OF EXAM: 02/22/2017 COMPARISON: Prior chest x-ray 10/23/2013 HISTORY: Presurgical TECHNIQUE: Frontal and lateral views of the chest are obtained. FINDINGS: There is no focal air space opacity, pleural effusion, or pneumothorax seen. The cardiac silhouette size is within normal limits. There is some elevation of the right hemidiaphragm. The oss eous structures are intact. IMPRESSION: No acute cardiopulmonary process.
== END | disposition home or self-care (01) ==
LOC: LABPAT 13:34
PROVIDERS: ATTEND Orthopaedic Surgery Orthopaedic Surgery of the Spine
DX: Z01.818 Encounter for other preprocedural examination (principal); G95.89 Other specified diseases of spinal cord; Z01.812 Encounter for preprocedural laboratory examination
CPT/HCPCS: 71020; 80048; 81001; 85025; 85610; 85730; 86850; 86900; 86901

== ENCOUNTER 2017-02-26 12:50 | Day surgery (SDC) | payer MEDICARE, OTHER ==
[~2017-02-26 12:50] MED LIST: BACITRACIN 50,000 UNIT, POLYMYXIN B 500,000 UNIT in SODIUM CHLORIDE 0.9% IRRIGATIO 1,00... IRRIGATION ONE; CLINDAMYCIN 600 MG in DEXTROSE 5% IN WATER 50 ML IVPB ONE; DEXAMETHASONE SOD PHOSPHATE 10 MG/ML 1 ML VIAL IV ONE; HYDROmorphone 1 MG/ML 1 ML SYRINGE IVP PRN; MIDAZOLAM 2 MG/2 ML VIAL IV PRN; ONDANSETRON 4 MG/2 ML VIAL IVP ONE; SCOPOLAMINE 1.5MG/72HR PATCH TRANSDERM ONE
[2017-02-26 13:23] LABS: Glucose,Whole Blood 88 mg/dL (75-99)
[2017-02-26] MEDS: LACTATED RINGERS 1,000 ML IV SCH ×2 (13:27→23:26)
[2017-02-26] MEDS ORDERED: LIDOCAINE 1% 20 ML VIAL (10MG/ML) FOR IV START INTRADERMA ONE (13:28)
[2017-02-26] MEDS ORDERED: HYDROmorphone (PF) 1 MG/ML ONE (13:42)
[2017-02-26] MEDS ORDERED: LIDOCAINE 1% INJ 10MG/ML (20 ML MDV) ONE (13:42)
[2017-02-26] MEDS ORDERED: PROPOFOL 10 MG/ML 20 ML VIAL IV ONE (13:42)
[2017-02-26] MEDS ORDERED: SUCCINYLCHOLINE CHLORIDE 100 MG/5 ML SYR IV ONE (13:42)
[2017-02-26] MEDS ORDERED: KETAMINE 10 MG/ML 20 ML VIAL ONE (13:42)
[2017-02-26] MEDS ORDERED: fentaNYL (PF) 50 MCG/ML 2 ML AMP ONE (13:42)
[2017-02-26] MEDS ORDERED: GELATIN SPONGE,ABSORB (LARGE) 1 EACH SPONGE TOPICAL ONE (14:12)
[2017-02-26] MEDS ORDERED: BUPIVACAINE (PF) 0.25% 30 ML VIAL SQ ONE (14:13)
[2017-02-26] MEDS ORDERED: LIDOCAINE 0.5%-EPI 1:200,000 50 ML VIAL SQ ONE (14:13)
[2017-02-26] MEDS ORDERED: THROMBIN (BOVINE) 5,000 UNIT VIAL TOPICAL ONE (14:13)
[2017-02-26] MEDS ORDERED: methylPREDNISolone ACETATE 40 MG/ML 1 ML VIAL MISCELLANE ONE (15:03)
[2017-02-26] MEDS ORDERED: BENZOCAINE/MENTHOL LOZENG 1 EACH LOZENGE MUCOUS MEM PRN (15:16)
[2017-02-26] MEDS ORDERED: HYDROmorphone 1 MG/ML 1 ML SYRINGE IVP PRN (15:16)
--- NOTE | 2017-02-26 15:16 | P.OP ---
Date of Procedure: 02/26/17 Preoperative Diagnosis: Epidural mass L3 4 Spinal stenosis L3 4 secondary to mass Low back pain and lower extremity radiculopathy Postoperative Diagnosis: Same presumably facet cyst L3 4 Procedure(s) Performed: Implants: Anesthesia: GETA Pathology: other (Products of laminectomy L3 4 sent to pathology in formalin) Condition: stable Disposition: PACU Indications for Procedure: Operative Findings: Description of Procedure: BRIEF OPERATIVE NOTE Preoperative Diagnosis: L3 4 epidural mass, spinal stenosis L3 4 secondary to mass, low back pain with lower extremity radiculopathy Postoperative Diagnosis: Same, presumably facet cyst Procedure: Laminectomy and decompression L3 4 Excision of epidural mass L3 4 Surgeon: Dr. Mistry [employer] Operator: Jaskaran Espinal is present throughout the entire the case persistence during positioning, dissection, exposure, visualization, and all crucial elements of the case as well as closure. Anesthesia: General anesthesia Estimated blood loss: Approximately 150 mL Specimen: Products of laminectomy L3 4 sent to pathology, presumably facet cyst Complications: None apparent Components implanted: None Disposition: To recovery room in good stable condition. OPERATIVE INDICATIONS The patient has been having issues in their lower back and lower extremities. She is found have a large epidural mass at L3 4. It was somewhat question was to the etiology of the mass and she had further contrast imaging which determined that it was either facet cyst versus the possibility of disc herniation. There is significant stenosis due to the mass itself and this correlated with the patient's symptoms. The patient has been through conservative treatment. She is not having any improvement despite conservative treatment. We discussed various treatment options including surgery, and the patient wishes to proceed with surgery We discussed the risk, patient's alternatives and benefits of surgery including but not limited to, risk of bleeding risk of infection, risk of need for further surgery, risk of decreased , loss of motion, loss of function, nerve damage, paralysis, heart attack, blindness and . OPERATIVE SUMMARY After discussing all the risks, patient alternatives and benefits at length, the patient elected to proceed with surgical intervention, signed informed consent, and presented for their procedure. The patient was seen and examined in the preoperative holding area and the surgical site was marked. The patient was given antibiotics and brought to the operating room. The patient was sedated and intubated by anesthesia in standard fashion. The patient was positioned on to the operating room table in a prone position on the appropriate frame which was well-padded and well molded. We were careful to pad any bony prominences and pressure points. We were careful to maintain the patient's cervical spine and good neutral alignment and position throughout. The patient was prepped and draped in a normal standard fashion. An appropriate timeout and keystone protocol performed. We were able to proceed with the surgery. Fluoroscopy was utilized to establish the appropriate level. The local wound area was infiltrated with local anesthetic. An incision was made at the midline longitudinally over the appropriate levels at L3 4. Dissection was taken down subcutaneously to the level of the fascia which was split midline. Dissection was taken over the lamina. Intraoperative fluoroscopy was taken which showed a marker at the appropriate level at L3 4. With the appropriate level positively confirmed, we were able to proceed with laminectom at L3 4 y. The wound was copiously irrigated and suctioned dry as had been done periodically throughout the case. I performed a laminectomy with a combination of curettes and a high-speed bur and Kerrison rongeurs. A small medial facetectomy was performed again further access. A partial foraminotomy was also performed. Portions of the ligamentum flavum were taken down to expose the dura. Internal note was made of significant mass and thickening of the ligamentum flavum. The mass seemed the stem from the facet cyst on the right and extend medial and cephalad compressing the dura. Significant portions of the mass were adherent to the dura itself. As able to remove significant portions of the mass and send the specimen to pathology. I was able to mobilize the traversing nerve root and gain access to the disc space. There was no evidence of severe disc herniation or extrusion and I decided to leave the disc intact. I explored extent of the mass which was extending behind L3 lamina and I removed significant portions of the mass itself to be sent for specimen. This provided significant decompression at the area and I was able to have a more mobile nerve root with no further compression noted. Portions of the capsule of the mass was left at the space as it was severely adherent to the dura and I felt further removal would likely damaged dura itself. I had good decompression felt I could leave the remainder of the capsule intact. Good hemostasis maintained. The wound was copiously irrigated and suctioned dry. Good decompression was noted. We were able to proceed with closure. The fascia was closed for a watertight closure. The subcuticular tissue was closed with absorbable suture. The wound was cleaned and dried and dressed with the appropriate dressing. The drapes were broken down. The patient was gently rolled back onto their hospital bed being careful to maintain their cervical spine and good neutral alignment and position. They were woken up by anesthesia, extubated, and brought to the recovery room in good stable condition. The patient will be admitted to the hospital for observation and for appropriate postoperative care, medical management and monitoring. We will continue to follow them closely about the postoperative course.
[2017-02-26] MEDS ORDERED: IBUPROFEN 600 MG TAB PO PRN (15:17)
[2017-02-26] MEDS ORDERED: KETOROLAC 30 MG/ML 1 ML VIAL IVP PRN (15:17)
[2017-02-26] MEDS ORDERED: HYDROcodone/APAP 5-325MG 1 EACH TAB PO PRN (15:17)
[2017-02-26 15:39] LABS: Glucose,Whole Blood 113 mg/dL (75-99)
--- NOTE | 2017-02-26 16:28 | XR ---
Limited lumbar spine HISTORY: Lumbar laminectomy Intraoperative C-arm image documents the procedure
--- NOTE | 2017-02-26 16:30 | FL ---
Fluoroscopy HISTORY: Lumbar laminectomy 4 seconds fluoroscopy time supplied to the referring clinician. 1 intraoperative C-arm image documen ts the procedure. See dictated report from orthopedic surgery.
[2017-02-26] MEDS: HYDROcodone/APAP 5-325MG 1 EACH TAB PO PRN ×2 (17:54→21:57)
[2017-02-26] MEDS: DIAZEPAM 5 MG TAB PO PRN (21:58)
[2017-02-26] MEDS: CLINDAMYCIN 600 MG in DEXTROSE 5% IN WATER 50 ML IVPB SCH ×2 (23:26)
[2017-02-27] MEDS: HYDROcodone/APAP 5-325MG 1 EACH TAB PO PRN ×2 (02:40→12:02)
[2017-02-27] MEDS: HYDROmorphone 1 MG/ML 1 ML SYRINGE IVP PRN ×2 (02:42→12:45)
[2017-02-27 05:37] VITALS: BMI 32.9
[2017-02-27 07:17] VITALS: BP 119/71; PULSE 85; RESP 18; TEMP 97.8
[2017-02-27] MEDS: CLINDAMYCIN 600 MG in DEXTROSE 5% IN WATER 50 ML IVPB SCH ×2 (07:36)
[2017-02-27] MEDS: SENNOSIDES-DOCUSATE SODIUM 1 EACH TAB PO SCH (08:39)
--- NOTE | 2017-02-27 08:43 | P.DS ---
Providers Date of admission: 02/26/2017 Expected date of discharge: 02/27/17 Attending physician: Yong Mistry Primary care physician: Bee Rodriguez - Discharge Diagnosis(es) (1) Lumbar epidural mass Current Visit: Yes Status: Acute (2) S/P lumbar laminectomy Current Visit: Yes Status: Acute (3) Low back pain Current Visit: Yes Status: Acute (4) Radiculopathy with lower extremity symptoms Current Visit: Yes Status: Acute (5) Pain of left calf Current Visit: Yes Status: Acute Hospital Course: This is a pleasant 51-year-old female who presented with L3-4 epidural mass, spinal stenosis secondary to mass, low back pain, and lower extremity radiculopathy who failed outpatient conservative therapy. She admitted for an L3-4 laminectomy and decompression with excision of epidural mass. The patient tolerated the procedure well. This morning she states she is not currently experiencing any right lower extremity radiculopathy which was present prior to surgical intervention. She is experiencing new left lower extremity pain behind the left knee and upper part of the left calf. She states this is a different sensation for her. She continues to have some pain at the surgical site, which is expected. She has been able to get out of the bed on her own. She is eating and voiding without significant difficulty. She states her pain has been controlled with [place]. She does feel she would like to go home today and will have a ride later this afternoon. We discussed we will plan to obtain a venous ultrasound Doppler of the left lower extremity to rule out DVT. If this Doppler is negative for DVT, we'll plan for discharge home today, 2016. We discussed she will not be clear for discharge until after the Doppler is performed and the results must be negative for DVT. Condition on day of discharge stable. Patient will be discharged home. Patient was cleared preoperatively for surgery by Dr. Rodriguez. Patient currently denies any nausea , vomiting, fever, or chills. Patient is eating and voiding freely without difficulty. Patient may shower Tegaderm dressing intact. Patient may remove Tegaderm dressing in 3 days and shower without a dressing at that time. We discussed we will change her dressing to a new nonstick Telfa and Tegaderm prior to discharge. Patient should keep Steri-Strips intact and allow them to fall off naturally. Patient should refrain from driving until at least after their first follow-up appointment in the office. Patient should avoid excessive bending, lifting, and twisting; no lifting greater than 10 pounds. She'll be given a prescription for [place] 10 mg/325 mg 1 tab every 8 hours as needed for pain at discharge. She has been prescribed this medicine previously and states she only has approximately 3 pills left at home. Physical Exam on day of discharge: Patient is awake, alert, and oriented 3 Vital signs stable Good chest excursion with deep inspiration and expiration Abdomen soft nontender Positive Homans' sign on the left Some pain with palpation of the upper left calf posteriorly No signs or symptoms of DVT; no calf pain of the right lower extremity Pneumatic cuffs intact bilateral lower extremities Extensor hallucis longus, plantarflexion, and dorsiflexion positive sustained bilateral lower extremities Incision is dry and intact; no erythema, purulence, or signs of infection Tegaderm dressing and non-stick Telfa intact; some dried blood on the nonstick Telfa at the incision site Procedures: L3-4 laminectomy and decompression with excision of epidural mass Patient Condition at Discharge: Stable Plan - Discharge Summary New Discharge Prescriptions: New HYDROcodone/APAP 10-325MG [[place] 10] 1 each PO Q8H PRN #90 tab PRN Reason: Pain No Action metFORMIN HCL [Glucophage] 500 mg PO QAM Hydrochlorothiazide 25 mg PO QAM PRN PRN Reason: Edema HYDROcodone/APAP 10-325MG [[place] 10-325] 1 tab PO TID PRN PRN Reason: Pain Ergocalciferol [Vitamin D2] 50,000 unit PO MO ALPRAZolam [Xanax] 1 mg PO TID Discharge Medication List Hydrochlorothiazide 25 mg PO QAM PRN 04/05/15 [History] metFORMIN HCL [Glucophage] 500 mg PO QAM 04/05/15 [History] HYDROcodone/APAP 10-325MG [[place] 10-325] 1 tab PO TID PRN 10/15/16 [History] ALPRAZolam [Xanax] 1 mg PO TID 10/16/16 [History] Ergocalciferol [Vitamin D2] 50,000 unit PO MO 10/16/16 [History] HYDROcodone/APAP 10-325MG [[place] 10] 1 each PO Q8H PRN #90 tab 02/27/17 [Rx] Follow up Appointment(s)/Referral(s): Jaskaran Celis, ALANNA [PHYSICIAN MEDICAL BILLING AND CODING INSTRUCTOR] - 2 Weeks (Patient may follow-up with Jaskaran Celis PA-C or Dr. Jag Mistry at [facility] in 2 weeks following discharge. ) Activity/Diet/Wound Care/Special Instructions: 1. Patient may shower Tegaderm dressing intact. 2. Patient may remove Tegaderm dressing in 3 days and shower without a dressing at that time. 3. Patient should keep Steri-Strips intact and allow them to fall off naturally. 4. Patient should refrain from driving until at least after their first follow- up appointment in the office. 5. Patient should avoid excessive bending, twisting, and lifting; no lifting greater than 10 pounds 6. Do not soak in tub Discharge Disposition: HOME SELF-CARE
--- NOTE | 2017-02-27 11:00 | US ---
EXAMINATION TYPE: US venous doppler duplex LE LT DATE OF EXAM: 02/27/2017 10:42 AM COMPARISON: 10/31/2011 CLINICAL HISTORY: Left lower extremity calf and posterior knee pain. SIDE PERFORMED: Left lower extremity TECHNIQUE: The lower extremity deep venous system is examined utilizing real time linear array sonog clara with graded compression, doppler sonography and color-flow sonography. VESSELS IMAGED: External Iliac Vein (EIV) Common Femoral Vein Deep Femoral Vein Greater Saphenous Vein * Femoral Vein Popliteal Vein Small Saphenous Vein * Proximal Calf Veins (* superficial vessels) Left Leg: Negative for DVT Study somewhat technically difficult due to patient extreme pain and difficulty positioning for test. IMPRESSION: 1. Technically Limited exam as discussed above with no diagnostic evidence of DVT as visualized.
[2017-02-27] MEDS: DIAZEPAM 5 MG TAB PO PRN (12:45)
== END 2017-02-27 14:50 | disposition home or self-care (01) ==
LOC: OR 12:50 → 5MS5E 15:17 → OR 02-27 14:50
PROVIDERS: ATTEND Orthopaedic Surgery Orthopaedic Surgery of the Spine
DX: M71.38 Other bursal cyst, other site (principal); M48.06 Spinal stenosis, lumbar region; M54.16 Radiculopathy, lumbar region; Z79.899 Other long term (current) drug therapy; Z79.84 Long term (current) use of oral hypoglycemic drugs; I10 Essential (primary) hypertension; E11.9 Type 2 diabetes mellitus without complications; Z88.0 Allergy status to penicillin; Z96.643 Presence of artificial hip joint, bilateral; Z96.653 Presence of artificial knee joint, bilateral; Z72.0 Tobacco use
CPT/HCPCS: 63267; 97162; 88304; 88311; 72020; 93971; J1030; J2405; J2001; J3010; J1170 ×2; J0330; J2704; 86850; 86900; 86901

== ENCOUNTER 2019-05-21 18:15 | Emergency (ER) | payer MEDICARE, OTHER ==
[2019-05-21 18:28] VITALS: RESP 18; TEMP 97.7
[2019-05-21] MEDS ORDERED: SODIUM CHLORIDE 0.9% 1,000 ML IV STA (18:49)
[2019-05-21 19:15] LABS: Basophils # (A) 0.1 k/uL (0-0.2); Basophils % (A) 1 %; Eosinophils # (A) 0.3 k/uL (0-0.7); Eosinophils % (A) 4 %; HCT 37.8 % (34.0-46.0); HGB 12.4 gm/dL (11.4-16.0); Lymphocytes # (A) 2.8 k/uL (1.0-4.8); Lymphocytes % (A) 32 %; MCH 34.3 pg (25.0-35.0); MCHC 32.8 g/dL (31.0-37.0); MCV 104.5 fL (80.0-100.0); Macrocytosis Slight; Mean Platelet Volume 8.4; Monocytes # (A) 0.4 k/uL (0-1.0); Monocytes % (A) 4 %; Neutrophils % (A) 57 %; Platelet Count 214 k/uL (150-450); RBC 3.62 m/uL (3.80-5.40); RDW 12.6 % (11.5-15.5); WBC 8.8 k/uL (3.8-10.6)
[2019-05-21 19:23] LABS: ALT 18 U/L (9-52); AST 22 U/L (14-36); African American GFR (CKD) >90 (>60 ml/min/1.73 sqM); Albumin 4.3 g/dL (3.5-5.0); Alkaline Phosphatase 75 U/L (38-126); Anion Gap 10 mmol/L; Blood Urea Nitrogen 19 mg/dL (7-17); Calcium 9.7 mg/dL (8.4-10.2); Carbon Dioxide 23 mmol/L (22-30); Chloride 109 mmol/L (98-107); Glucose 94 mg/dL (74-99); Sodium 142 mmol/L (137-145); Total Bilirubin 0.3 mg/dL (0.2-1.3); Total Protein 7.1 g/dL (6.3-8.2)
[2019-05-21 19:34] LABS: D-Dimer 0.5 mg/L FEU (<0.60); INR 0.9 (<1.2); Prothrombin Time 9.8 sec (9.0-12.0)
--- NOTE | 2019-05-21 20:04 | US ---
EXAMINATION TYPE: US venous doppler duplex LE LT DATE OF EXAM: 05/21/2019 7:58 PM COMPARISON: US CLINICAL HISTORY: Pain. Pain left leg x 45 minutes. No hx of DVT. Patient not on blood thinners. SIDE PERFORMED: Left TECHNIQUE: The lower extremity deep venous system is examined utilizing real time linear array sonog clara with graded compression, doppler sonography and color-flow sonography. VESSELS IMAGED: External Iliac Vein (EIV) Common Femoral Vein Deep Femoral Vein Greater Saphenous Vein * Femoral Vein Popliteal Vein Small Saphenous Vein * Proximal Calf Veins (* superficial vessels) Left Leg: Limited exam due to edema and patient's pain. No evidence of DVT from prox calf veins to E IV, although cannot clearly visualize compressions of mid and distal femoral veins. IMPRESSION: No evidence of deep venous thrombosis in the left leg.
--- NOTE | 2019-05-21 21:22 | XR ---
EXAMINATION TYPE: XR chest 2V DATE OF EXAM: 05/21/2019 COMPARISON: 02/22/2017 HISTORY: Chest pain TECHNIQUE: Frontal and lateral views of the chest are obtained. FINDINGS: Heart and mediastinum are normal. Lungs are clear. Diaphragm is normal. Bony thorax is int act. IMPRESSION: No active cardiopulmonary disease. Normal heart. No change.
--- NOTE | 2019-05-21 21:42 | ED ---
General Adult HPI - General Chief complaint: Shortness of Breath Stated complaint: SOB/leg numbness Time Seen by Provider: 05/21/19 18:30 Source: patient Mode of arrival: ambulatory Limitations: no limitations - History of Present Illness Initial comments: The patient is a 54-year-old female presents to the emergency department with reported chronic lower extremity numbness and tingling. She states that this been going on for several months. It is been worsening over the past week. She describes it as a burning sensation in her posterior calf. She states that it was originally in her right leg. She went into [facility] and they performed a Doppler ultrasound. She states that it was negative. The sensation has now transitioned to her left leg. She denies a history of DVT or PE. She is not on any anticoagulation. She states that she researched DVTs and became concerned of the possibility of a PE. States that today she felt as if she was short of breath. She denies a cough or hemoptysis. No calf swelling. Admits to frequent travel. No hormone use. No family history of clotting disorders. She denies any chest pain. No fevers or chills. No ripping or tearing sensation to her back. She denies any upper extremity numbness or weakness. The burning sensation does not involve her feet. She has no difficulties with ambulation. There are no other alleviating, precipitating or modifying factors - Related Data Home Medications Medication Instructions Recorded Confirmed Ergocalciferol [Vitamin D2] 50,000 unit PO MO 10/16/16 05/21/19 oxyCODONE HCL [oxyCODONE HCL (IR)] 20 mg PO QID 05/21/19 05/21/19 Allergies Allergy/AdvReac Type Severity Reaction Status Date / Time levofloxacin Allergy Unknown Verified 05/21/19 18:34 Penicillins Allergy Unknown Verified 05/21/19 18:34 Review of Systems ROS Statement: Those systems with pertinent positive or pertinent negative responses have been documented in the HPI. ROS Other: All systems not noted in ROS Statement are negative. Past Medical History Past Medical History: Diabetes Mellitus, Hyperlipidemia, Hypertension Additional Past Medical History / Comment(s): kidney stones History of Any Multi-Drug Resistant Organisms: MRSA Date of last positivie culture/infection: 09/17/1994 MDRO Source:: LEFT HIP Past Surgical History: Hysterectomy, Joint Replacement, Orthopedic Surgery Additional Past Surgical History / Comment(s): uterine cyst, lefthip and knee replacement Past Anesthesia/Blood Transfusion Reactions: Postoperative Nausea & Vomiting (PONV) Past Psychological History: No Psychological Hx Reported Smoking Status: Current every day smoker Past Alcohol Use History: Occasional Past Drug Use History: None Reported - Past Family History Mother Family Medical History: No Reported History General Exam Limitations: no limitations General appearance: alert, in no apparent distress Head exam: Present: atraumatic, normocephalic, normal inspection Eye exam: Present: normal appearance, PERRL, EOMI. Absent: scleral icterus, conjunctival injection, periorbital swelling ENT exam: Present: normal exam, mucous membranes moist Neck exam: Present: normal inspection. Absent: tenderness, meningismus, lymphadenopathy Respiratory exam: Present: normal lung sounds bilaterally. Absent: respiratory distress, wheezes, rales, rhonchi, stridor Cardiovascular Exam: Present: regular rate, normal rhythm, normal heart sounds. Absent: systolic murmur, diastolic murmur, rubs, gallop, clicks GI/Abdominal exam: Present: soft, normal bowel sounds. Absent: distended, tenderness, guarding, rebound, rigid Extremities exam: Present: normal inspection, full ROM, normal capillary refill, calf tenderness (left calf tenderness to palpation. Negative daisy sign. Negative casillas sign. 2+ DP and PT pulses bilaterally. 5/5 muscle strength in the bilateral lower extremities). Absent: pedal edema, joint swelling Back exam: Present: normal inspection Neurological exam: Present: alert, oriented X3, CN II-XII intact Psychiatric exam: Present: normal affect, normal mood Skin exam: Present: warm, dry, intact, normal color. Absent: rash Course Vital Signs 05/21/19 05/21/19 05/21/19 18:25 20:37 21:53 Temperature 97.7 F Pulse Rate 75 73 75 Respiratory 18 18 18 Rate Blood Pressure 159/91 145/87 O2 Sat by Pulse 100 100 99 Oximetry EKG Findings - EKG Comments: EKG Findings:: EKG demonstrates a normal sinus rhythm with a ventricular rate of 67. SD interval 144. QRS 82. QTC 422. There is an inverted T-wave in lead 1. No acute ST segment elevations or depressions concerning for ischemic changes Medical Decision Making - Medical Decision Making Upon arrival the patient is placed into room 1. She is hooked up to continuous pulse ox and cardiac monitoring. A 12-lead EKG was performed which demonstrates normal sinus rhythm. Laboratory studies were conducted. She was sent for an u ltrasound of her left lower extremity. Upon review of the results the patient's d-dimer is negative. I discussed this with the patient. I did offer her a CT of her chest however she refused. I then sent the patient over for a chest x- ray. It is reviewed and the results are discussed with the patient. At this time the patient will be discharged home. She is to follow-up with her primary care physician. She may need evaluation by neurology and vascular. If she has any new or worsening symptoms she should return to the emergency room. The patient was in agreement with the treatment plan and she was discharged home in stable condition - Lab Data Result diagrams: 05/21/19 19:00 05/21/19 19:00 Lab Results 05/21/19 05/21/19 05/21/19 Range/Units 19:00 19:00 19:00 WBC 8.8 (3.8-10.6) k/uL RBC 3.62 L (3.80-5.40) m/uL Hgb 12.4 (11.4-16.0) gm/dL Hct 37.8 (34.0-46.0) % MCV 104.5 H (80.0-100.0) fL MCH 34.3 (25.0-35.0) pg MCHC 32.8 (31.0-37.0) g/dL RDW 12.6 (11.5-15.5) % Plt Count 214 (150-450) k/uL Neutrophils % 57 % Lymphocytes % 32 % Monocytes % 4 % Eosinophils % 4 % Basophils % 1 % Neutrophils # 5.0 (1.3-7.7) k/uL Lymphocytes # 2.8 (1.0-4.8) k/uL Monocytes # 0.4 (0-1.0) k/uL Eosinophils # 0.3 (0-0.7) k/uL Basophils # 0.1 (0-0.2) k/uL Macrocytosis Slight PT 9.8 (9.0-12.0) sec INR 0.9 (<1.2) APTT 21.0 L (22.0-30.0) sec D-Dimer 0.50 (<0.60) mg/L FEU Sodium 142 (137-145) mmol/L Potassium 4.0 (3.5-5.1) mmol/L Chloride 109 H (98-107) mmol/L Carbon Dioxide 23 (22-30) mmol/L Anion Gap 10 mmol/L BUN 19 H (7-17) mg/dL Creatinine 0.68 (0.52-1.04) mg/dL Est GFR (CKD-EPI)AfAm >90 (>60 ml/min/1.73 sqM) Est GFR (CKD-EPI)NonAf >90 (>60 ml/min/1.73 sqM) Glucose 94 (74-99) mg/dL Calcium 9.7 (8.4-10.2) mg/dL Total Bilirubin 0.3 (0.2-1.3) mg/dL AST 22 (14-36) U/L ALT 18 (9-52) U/L Alkaline Phosphatase 75 (38-126) U/L Troponin I (0.000-0.034) ng/mL NT-Pro-B Natriuret Pep pg/mL Total Protein 7.1 (6.3-8.2) g/dL Albumin 4.3 (3.5-5.0) g/dL 05/21/19 05/21/19 Range/Units 19:00 19:00 WBC (3.8-10.6) k/uL RBC (3.80-5.40) m/uL Hgb (11.4-16.0) gm/dL Hct (34.0-46.0) % MCV (80.0-100.0) fL MCH (25.0-35.0) pg MCHC (31.0-37.0) g/dL RDW (11.5-15.5) % Plt Count (150-450) k/uL Neutrophils % % Lymphocytes % % Monocytes % % Eosinophils % % Basophils % % Neutrophils # (1.3-7.7) k/uL Lymphocytes # (1.0-4.8) k/uL Monocytes # (0-1.0) k/uL Eosinophils # (0-0.7) k/uL Basophils # (0-0.2) k/uL Macrocytosis PT (9.0-12.0) sec INR (<1.2) APTT (22.0-30.0) sec D-Dimer (<0.60) mg/L FEU Sodium (137-145) mmol/L Potassium (3.5-5.1) mmol/L Chloride (98-107) mmol/L Carbon Dioxide (22-30) mmol/L Anion Gap mmol/L BUN (7-17) mg/dL Creatinine (0.52-1.04) mg/dL Est GFR (CKD-EPI)AfAm (>60 ml/min/1.73 sqM) Est GFR (CKD-EPI)NonAf (>60 ml/min/1.73 sqM) Glucose (74-99) mg/dL Calcium (8.4-10.2) mg/dL Total Bilirubin (0.2-1.3) mg/dL AST (14-36) U/L ALT (9-52) U/L Alkaline Phosphatase (38-126) U/L Troponin I <0.012 (0.000-0.034) ng/mL NT-Pro-B Natriuret Pep 76 pg/mL Total Protein (6.3-8.2) g/dL Albumin (3.5-5.0) g/dL Disposition Clinical Impression: Pain of left calf Disposition: HOME SELF-CARE Condition: Stable Instructions (If sedation given, give patient instructions): Paresthesia (ED) Additional Instructions: Please follow-up with your primary care doctor for further evaluation. Return to the emergency room for any new or worsening symptoms Is patient prescribed a controlled substance at d/c from ED?: No Referrals: Anthony Randle NPC [Primary Care Provider] - 1-2 days Time of Disposition: 21:42
[2019-05-21 22:00] VITALS: BP 145/87; PULSE 75
== END 2019-05-21 21:59 | disposition home or self-care (01) ==
LOC: EC 18:15
DX: M79.662 Pain in left lower leg (principal); R06.02 Shortness of breath; R20.0 Anesthesia of skin; R20.2 Paresthesia of skin; F17.200 Nicotine dependence, unspecified, uncomplicated; Z86.14 Personal history of Methicillin resistant Staphylococcus aureus infection; Z96.652 Presence of left artificial knee joint; Z96.642 Presence of left artificial hip joint; Z53.29 Procedure and treatment not carried out because of patient's decision for other reasons; Z79.891 Long term (current) use of opiate analgesic; Z88.0 Allergy status to penicillin; Z88.1 Allergy status to other antibiotic agents
CPT/HCPCS: 36415; 71046; 80053; 83880; 84484; 85025; 85379; 85610; 85730; 93005; 99285

== ENCOUNTER → 2020-10-04 | Outpatient (CLI) | payer MEDICARE, OTHER ==
--- NOTE | 2020-10-05 07:39 | ECHOF ---
Referral Reason:R60.0 MEASUREMENTS -------- HEIGHT: 165.1 cm WEIGHT: 79.4 kg BP: RVIDd: 2.6 cm (< 3.3) IVSd: 1.5 cm (0.6 - 1.1) LVIDd: 3.9 cm (3.9 - 5.3) LVPWd: 1.3 cm (0.6 - 1.1) IVSs: 1.8 cm LVIDs: 2.6 cm LVPWs: 1.8 cm LAESV Index (A-L): 36.47 ml/m Ao Diam: 3.2 cm (2.0 - 3.7) AV Cusp: 2.2 cm (1.5 - 2.6) MV E John: 0.71 m/s MV DecT: 193 ms MV A John: 0.95 m/s MV E/A Ratio: 0.75 RAP: 5.00 mmHg RVSP: 18.14 mmHg FINDINGS -------- Sinus rhythm. This was a technically difficult study with suboptimal views. The left ventricular size is normal. There is moderate concentric left ventricular hypertrophy. O verall left ventricular systolic function is normal with, an EF between 55 - 60 %. The right ventricle is normal in size. LA is moderately dilated 34-39 ml/m2 The right atrial size is normal. 5.0mg of Lumason was utilized for enhancement of images Interatrial and interventricular septum intact. The aortic valve was not well visualized. Trace to mild aortic regurgitation. There is no evidenc e of aortic stenosis. Mild mitral annular calcification present. Kjlk-nq-vzjusidq mitral regurgitation is present. The tricuspid valve appears structurally normal. Mild tricuspid regurgitation present. Right vent ricular systolic pressure is normal at < 35 mmHg. The right ventricular systolic pressure, as measu red by Doppler, is 18.14mmHg. The pulmonic valve was not well visualized. The aortic root size is normal. IVC Not well visulized. There is no pericardial effusion. CONCLUSIONS -------- 1. This was a technically difficult study with suboptimal views. 2. There is moderate concentric left ventricular hypertrophy. 3. Overall left ventricular systolic function is normal with, an EF between 55 - 60 %. 4. LA is moderately dilated 34-39 ml/m2 5. Trace to mild aortic regurgitation. 6. Nerp-uw-ivbzxgch mitral regurgitation is present. 7. Mild tricuspid regurgitation present. CARD ROOM MANAGER: Neeta Rizvi RDCS
== END | disposition home or self-care (01) ==
LOC: RADECHMAIN 14:30
PROVIDERS: ATTEND Internal Medicine
DX: I08.3 Combined rheumatic disorders of mitral, aortic and tricuspid valves (principal)
CPT/HCPCS: C8929; Q9950; 93306

== ENCOUNTER → 2020-10-08 | Outpatient (CLI) | payer MEDICARE, OTHER ==
--- NOTE | 2020-10-08 14:26 | US ---
EXAMINATION TYPE: US venous doppler duplex LE DATE OF EXAM: 10/08/2020 2:05 PM COMPARISON: NONE CLINICAL HISTORY: R60.0 Localized edema. LOWER EXTREMITY VENOUS INSUFFICIENCY CLINICAL HISTORY: R60.0 Localized edema. edema SIDE PERFORMED: Bilateral 1) Color flow is present and patency is documented in the following vessels. No DVT or SVT is noted . Common Femoral Vein Deep Femoral Vein Femoral Vein Popliteal Vein Greater Saph Vein 2) There is venous reflux noted at the following venous levels: Right greater Saph Vein at junction , Deep Femoral Vein, Femoral Vein Prox to distal. Left Greater Saph Vein, Deep Femoral Vein, Femoral Vein Prox to distal. 3) Incompetent perforators are noted at these levels: Bilateral legs from Greater Saph Veins to Fe moral Veins distaally. IMPRESSION: 1. Venous reflux as noted above.
== END | disposition home or self-care (01) ==
LOC: RADUSWWP 13:24
PROVIDERS: ATTEND Internal Medicine
DX: I87.2 Venous insufficiency (chronic) (peripheral) (principal)
CPT/HCPCS: 93970

== ENCOUNTER → 2020-11-01 | Outpatient (CLI) | payer MEDICARE, OTHER ==
--- NOTE | 2020-11-01 17:06 | US ---
EXAMINATION TYPE: US kidneys/renal and bladder DATE OF EXAM: 11/01/2020 COMPARISON: NONE CLINICAL HISTORY: 55-year-old female Calculus of Ureter N20.1. Hx of stones TECHNIQUE: Multiple sonographic images of the kidneys and bladder are obtained. EXAM MEASUREMENTS: Right Kidney: 10.2 x 4.6 x 4.6 cm Left Kidney: 9.9 x 5.1 x 4.8 cm No hydronephrosis on either side. Bladder: Partial distention limits evaluation. No gross abnormality seen. Bilateral Jets seen: no IMPRESSION: No hydronephrosis.
== END | disposition home or self-care (01) ==
LOC: RADUSWWP 15:13
PROVIDERS: ATTEND Urology
DX: N20.1 Calculus of ureter (principal)
CPT/HCPCS: 76770

== ENCOUNTER → 2024-03-11 | Outpatient (CLI) | payer MEDICARE, OTHER ==
[2024-03-11 15:17] LABS: HCT 40.2 % (37.2-46.3); HGB 12.4 g/dL (12.0-15.0); MCH 33.2 pg (27.0-32.0); MCHC 30.8 g/dL (32.0-37.0); MCV 107.8 FL (80.0-97.0); Mean Platelet Volume 12.5 FL (9.5-12.2); NRBC Per 100 WBC 0.02 X 10*3/uL (0.00-0.01); Platelet Count 287 X 10*3/uL (140-440); RBC 3.73 X 10*6/uL (4.10-5.20); RDW 12.8 % (11.5-14.5); WBC 10.81 X 10*3/uL (4.50-10.00)
[2024-03-11 15:54] LABS: Erythrocyte Sedimentation Rate 18 mm/Hr (0-30)
== END | disposition home or self-care (01) ==
LOC: LABWHC1 08:32
PROVIDERS: ATTEND Orthopaedic Surgery
DX: M25.561 Pain in right knee (principal); Z96.651 Presence of right artificial knee joint
CPT/HCPCS: 36415; 85027; 85652; 86140

== ENCOUNTER → 2024-03-17 | Outpatient (CLI) | payer MEDICARE, OTHER ==
[2024-03-17 07:38] LABS: African American GFR (CKD) >90 (>60 ml/min/1.73 sqM); Blood Urea Nitrogen 22 mg/dL (7-17); Non-African American GFR(CKD) >90 (>60 ml/min/1.73 sqM)
--- NOTE | 2024-03-17 12:24 | CT ---
EXAMINATION TYPE: CT soft tissue neck w con CT DLP: 787.70 mGycm, Automated exposure control for dose reduction was used. DATE OF EXAM: 03/17/2024 8:14 AM COMPARISON: None CLINICAL INDICATION:Female, 58 years old with history of R49.0 hoarseness; PHH, Hoarseness, dysphonia , hx polyps. Surgery scheduled for 03/21 TECHNIQUE: Standard enhanced CT of the neck. Axial sections with coronal and sagittal reformats were obtained. Contrast used:100 mL of Isovue 300 with IV Contrast, (None if empty) Oral contrast used: (None if empty) FINDINGS: Brain: Visualized portions are grossly unremarkable. Orbits: Unremarkable Sinuses: Grossly unremarkable. Spaces of the neck: Clear and symmetric. Musculoskeletal: No acute osseous pathology. Lymph nodes: Multiple nonenlarged lymph nodes are seen along both anterior chains of the neck. Vascular structures: Visualized major arteries are patent without evidence of aneurysm. Thoracic Inlet/airway: Airway is patent. The lung apices are clear. Soft tissues/Thyroid: Right thyroid nodule measuring 7 mm. Other: none. IMPRESSION 1. No lymphadenopathy. No mucosal masses definitively visualized. If there remains concern consider direct visualization. 2. Subcentimeter right thyroid nodule. Consider evaluation with thyroid ultrasound.
== END | disposition home or self-care (01) ==
LOC: RADCTMAIN 06:55
PROVIDERS: ATTEND Otolaryngology
DX: E04.1 Nontoxic single thyroid nodule (principal); R49.0 Dysphonia
CPT/HCPCS: 82565; 84520; 70491; 36415; Q9967

== ENCOUNTER 2024-03-21 10:47 | Day surgery (SDC) | payer MEDICARE, OTHER ==
--- NOTE | 2024-03-20 16:52 | HP ---
HISTORY AND PHYSICAL CHIEF COMPLAINT: Chronic laryngitis. HISTORY OF PRESENT ILLNESS: This patient is a 58-year-old female, who was recently seen in my office complaining of having a 6-month history of intermittent hoarseness. The patient smokes approximately 1/2 pack of cigarettes per day and was advised to quit for obvious health reasons. She states that she is trying to quit and she had been placed on Wellbutrin. She is not sure whether it is helping her or not. At the time that she was seen in my office, clinical examination of the hypopharynx using the mirror and headlight revealed evidence of suspicious tissue on the left true vocal cord primarily. Because of the patient's history of heavy smoking and laryngitis, it was recommended that she undergo a suspension microlaryngoscopy with biopsy and possible laser. PAST MEDICAL HISTORY: Reveals the patient has allergies to penicillin, Neurontin, and Levaquin. PREVIOUS SURGERIES: Include suspension microlaryngoscopy with removal of a benign polyp, 7 knee replacements on the right side, 2 partial left shoulder repairs, lower back surgery, and 2 hip replacements. CURRENT MEDICATIONS: Include: 1. Prilosec. 2. Hydrochlorothiazide. 3. Wellbutrin. 4. Atorvastatin. 5. Mobic. 6. Singulair. 7. [place]. REVIEW OF SYSTEMS: CARDIOVASCULAR SYSTEM: Negative. GASTROINTESTINAL SYSTEM: Positive for GERD (gastroesophageal reflux disorder). METABOLIC/ENDOCRINE: Positive for hypercholesterolemia. MUSCULOSKELETAL SYSTEM: Positive for osteoarthritis. The remainder of the review of systems is essentially unremarkable. PHYSICAL EXAMINATION: GENERAL: The patient is a 58-year-old female, who is alert and cooperative. HEENT: The patient is normocephalic. Tympanic membranes are normal. Middle ear spaces are free of any fluid or infection. Pupils are equal, round, reactive to light and accommodation. Extraocular movements within normal limits. Intranasal examination reveals moderate septal deviation with compensatory hypertrophy of the inferior turbinates. Examination of oropharynx and hypopharynx are described above and will not be repeated here. Cranial nerves 2 through 12, and remainder of the head and neck exam are within normal limits. CHEST/CARDIOVASCULAR: Both lung calderón are clear to percussion and auscultation. The patient is in regular sinus rhythm. S1 and S2 are present without any no murmurs. Peripheral pulses are bilaterally symmetrical and within normal limits. ABDOMEN: No evidence of any masses, megaly, or tenderness. The abdomen is soft. SKIN: Unremarkable. MUSCULOSKELETAL/NEUROLOGIC: Within normal limits. PELVIC/RECTAL: This is deferred at this time because the patient has done on a regular basis at her family physician's office. Remainder of physical exam is unremarkable. IMPRESSION: Chronic laryngitis. PLAN: The patient is scheduled to undergo suspension microlaryngoscopy with biopsy and possible CO2 laser under general anesthesia. Attention, RNs in the pre-surgical area: I have ordered for this patient to receive 2 grams of Rocephin IV to be given once an IV line has been established. If the pharmacy department sends a different pre-surgical prophylactic antibiotic to the pre-surgical area for this patient, please cancel that order and return the medications to the pharmacy. Also, please make sure that the patient's account is credited appropriately. I have also ordered for this patient to receive 1000 mg of Ofirmev IV to be given once an intravenous line has been established. I have discussed the risks, benefits and alternative therapies for the above-mentioned procedure and for both sedation/analgesia as well as necessary blood product administration, if indicated, as they pertain to this patient. The patient has indicated her understanding and acceptance of the risks and procedures discussed. MMODL / IJN: [id number] /
[~2024-03-21 10:47] MED LIST changes: -BACITRACIN 50,000 UNIT, POLYMYXIN B 500,000 UNIT in SODIUM CHLORIDE 0.9% IRRIGATIO 1,00... IRRIGATION ONE; -CLINDAMYCIN 600 MG in DEXTROSE 5% IN WATER 50 ML IVPB ONE; -DEXAMETHASONE SOD PHOSPHATE 10 MG/ML 1 ML VIAL IV ONE; -HYDROmorphone 1 MG/ML 1 ML SYRINGE IVP PRN; +LIDOCAINE 1% (10MG/ML) FOR IV START INTRADERMA PRN; -ONDANSETRON 4 MG/2 ML VIAL IVP ONE; +Pre Op ABX Message 1 EACH MISC MISCELLANE ONE; -SCOPOLAMINE 1.5MG/72HR PATCH TRANSDERM ONE; +fentaNYL (PF) 50 MCG/ML 2 ML AMP IVP PRN
[2024-03-21] MEDS: IV FLUID CONTINUATION 1,000 ML IV ONE (11:15)
[2024-03-21 11:20] LABS: Glucose,Whole Blood 102 mg/dL (70-110)
[2024-03-21] MEDS: ONDANSETRON 4 MG/2 ML VIAL IVP ONE (11:21)
[2024-03-21] MEDS: DEXAMETHASONE SOD PHOSPHATE 4 MG/ML 1 ML VIAL IV ONE (11:21)
[2024-03-21] MEDS: LACTATED RINGERS 1,000 ML IV SCH (11:21)
[2024-03-21] MEDS: ACETAMINOPHEN IV (For NPO) 1,000 MG in EMPTY BAG 1 BAG IVPB ONE (11:23)
[2024-03-21] MEDS: fentaNYL (PF) 50 MCG/ML 2 ML AMP IVP ONE ×2 (11:53→12:01)
[2024-03-21] MEDS ORDERED: MIDAZOLAM 2 MG/2 ML VIAL ONE (13:12)
[2024-03-21] MEDS ORDERED: PROPOFOL 10 MG/ML 20 ML VIAL IV ONE (13:12)
[2024-03-21] MEDS ORDERED: PHENYLEPHRINE 10 MG/ML VIAL ONE (13:12)
[2024-03-21] MEDS ORDERED: ACETAMINOPHEN IV (For NPO) 1,000 MG/100 ML VIAL ONE (13:12)
[2024-03-21] MEDS ORDERED: SUCCINYLCHOLINE CHLORIDE 200 MG/10 ML VIAL IV ONE (13:12)
[2024-03-21] MEDS ORDERED: fentaNYL (PF) 50 MCG/ML 2 ML AMP ONE (13:12)
[2024-03-21] MEDS ORDERED: DEXAMETHASONE SOD PHOSPHATE 4 MG/ML 1 ML VIAL ONE (13:12)
[2024-03-21] MEDS ORDERED: GLYCOPYRROLATE 0.2 MG/ML 2 ML VIAL ONE (13:12)
[2024-03-21 14:16] VITALS: TEMP 97
[2024-03-21] MEDS: HYDROmorphone 0.5 MG/0.5 ML SYRINGE IVP PRN (14:29)
[2024-03-21 15:34] VITALS: BP 174/88; PULSE 89; RESP 18
--- NOTE | 2024-03-24 17:30 | OP ---
OPERATIVE REPORT DATE OF SERVICE : 03/21/2024 PREOPERATIVE DIAGNOSIS: Chronic laryngitis. 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 ANESTHESIA: General. OPERATIVE PROCEDURE: Suspension microlaryngoscopy with biopsy and laser of the left true vocal cord lesion/polyp. COMPLICATIONS: None. ESTIMATED BLOOD LOSS: None. DESCRIPTION OF PROCEDURE: The patient was placed on the operating table in supine position. After uneventful induction and endotracheal intubation, satisfactory general anesthesia was obtained. Next, the patient was draped in the usual and customary fashion. Following this, the laryngoscope was introduced into the patient's oropharynx and the entire hypopharynx including the right and left piriform sinuses, base of tongue, valleculae and epiglottis were inspected and found to be free of any suspicious lesions. Next, the tip of the laryngoscope was placed at the laryngeal introitus and epiglottis was elevated in the usual fashion. Next, the Lewy apparatus was attached to the handle of the laryngoscope and the laryngoscope was suspended on the patient's chest. Next, using the Zeiss operating microscope and under direct magnification, one could see that there was a moderate size lesion located on the left true vocal cord. This appeared to be a polyp. However, because of the patient's history of heavy smoking, it was elected to biopsy this area and send it to pathology. The lesion was biopsied using a pair of up-biting microlaryngeal forceps and the specimen was sent to Pathology in formalin for permanent sectioning. The remaining base of the lesion was vaporized using the CO2 laser on the usual/appropriate settings. The patient was given 10 mg of Decadron intraoperatively to reduce any postoperative laryngeal edema. At this point, the procedure was terminated. There were no intraoperative complications. The patient tolerated the procedure well. Final pathology is pending. The patient was returned to the recovery room in satisfactory condition. MMODL / IJN: [id number] /
== END 2024-03-21 15:51 | disposition home or self-care (01) ==
LOC: OR 10:47
PROVIDERS: ATTEND Otolaryngology
DX: J37.0 Chronic laryngitis (principal); J38.1 Polyp of vocal cord and larynx; K21.9 Gastro-esophageal reflux disease without esophagitis; E78.00 Pure hypercholesterolemia, unspecified; J44.9 Chronic obstructive pulmonary disease, unspecified; I10 Essential (primary) hypertension; F41.9 Anxiety disorder, unspecified; F17.210 Nicotine dependence, cigarettes, uncomplicated; Z88.8 Allergy status to other drugs, medicaments and biological substances; Z88.0 Allergy status to penicillin; Z88.1 Allergy status to other antibiotic agents; Z79.899 Other long term (current) drug therapy
CPT/HCPCS: 88305; 31536; J2250; J0330; J1100; J2405; J3010; J0131; J2704; J1170; J2371; J1596

== ENCOUNTER 2024-04-09 21:45 | Emergency (ER) | payer MEDICARE, OTHER ==
[2024-04-09 21:53] VITALS: TEMP 97.8
--- NOTE | 2024-04-09 22:07 | ED ---
Fall HPI - General Chief Complaint: Extremity Injury, Lower Stated Complaint: fell, knee injury Time Seen by Provider: 04/09/24 21:53 Source: patient, EMS, RN notes reviewed, old records reviewed Mode of arrival: EMS Limitations: no limitations - History of Present Illness Initial Comments: This is a 58-year-old female to ER for knee pain and significant knee pain right knee pain, at this time patient is coming in with knee pain after a fall history of severe and chronic knee pain. Traumatic injury MD Complaint: fall -: hour(s) Fall From: standing (In the shower when she fell) When Fall Occurred: [address] Fall Witnessed: no Place Fall Occurred: home Loss of Consciousness: none Prolonged Down Time?: no Symptoms Prior to Fall: none Location - Extremities: Right: Knee Severity: severe Severity scale (1-10): 8 Context: tripped/slipped Associated Symptoms: denies - Related Data Home Medications Medication Instructions Recorded Confirmed Ergocalciferol [Vitamin D2] 50,000 unit PO SA 10/16/16 03/19/24 oxyCODONE HCL [oxyCODONE HCL (IR)] 30 mg PO TID 05/21/19 03/19/24 Albuterol Inhaler [Ventolin Hfa 1 - 2 puff INHALATION Q6H PRN 03/19/24 03/19/24 Inhaler] Atorvastatin [Lipitor] 20 mg PO DAILY 03/19/24 03/19/24 Dextroamphetamine/Amphetamine 20 mg PO DAILY 03/19/24 03/19/24 [Adderall] Ibuprofen [Motrin] 800 mg PO Q8H PRN 03/19/24 03/19/24 Meloxicam 7.5 mg PO BID PRN 03/19/24 03/19/24 Omeprazole [PriLOSEC] 40 mg PO DAILY 03/19/24 03/19/24 Pregabalin [Lyrica] 75 mg PO BID 03/19/24 03/19/24 buPROPion XL [Wellbutrin XL] 300 mg PO DAILY 03/19/24 03/19/24 hydroCHLOROthiazide 25 mg PO DAILY 03/19/24 03/19/24 metFORMIN HCL [Glucophage] 500 mg PO BID 03/19/24 03/19/24 Previous Rx's Medication Instructions Recorded Ibuprofen 800 mg PO Q8H #21 tab 03/20/24 Allergies Allergy/AdvReac Type Severity Reaction Status Date / Time gabapentin Allergy Anaphylaxis Verified 03/19/24 14:44 levofloxacin Allergy Unknown Verified 03/19/24 14:44 Penicillins Allergy Unknown Verified 03/19/24 14:44 Review of Systems ROS Statement: Those systems with pertinent positive or pertinent negative responses have been documented in the HPI. ROS Other: All systems not noted in ROS Statement are negative. Past Medical History Past Medical History: Asthma, COPD, Diabetes Mellitus, Hyperlipidemia, Hypertension, Osteoarthritis (OA) Additional Past Medical History / Comment(s): kidney stones, knee pain and arthritis History of Any Multi-Drug Resistant Organisms: MRSA Date of last positivie culture/infection: 09/17/1994 MDRO Source:: LEFT HIP Past Surgical History: Hysterectomy, Joint Replacement, Orthopedic Surgery Additional Past Surgical History / Comment(s): hank hip replacement, left partial knee replacement, 7 right knee replacements, hank rotator cuff surg Past Anesthesia/Blood Transfusion Reactions: Postoperative Nausea & Vomiting (PONV) Past Psychological History: Anxiety Smoking Status: Current every day smoker - Past Family History Mother Family Medical History: No Reported History General Exam Limitations: no limitations General appearance: alert, in no apparent distress Head exam: Present: atraumatic, normocephalic, normal inspection Eye exam: Present: normal appearance, PERRL, EOMI. Absent: scleral icterus, conjunctival injection, periorbital swelling ENT exam: Present: normal exam, mucous membranes moist Neck exam: Present: normal inspection. Absent: tenderness, meningismus, lymphadenopathy Respiratory exam: Present: normal lung sounds bilaterally. Absent: respiratory distress, wheezes, rales, rhonchi, stridor Cardiovascular Exam: Present: regular rate, normal rhythm, normal heart sounds. Absent: systolic murmur, diastolic murmur, rubs, gallop, clicks GI/Abdominal exam: Present: soft, normal bowel sounds. Absent: distended, tenderness, guarding, rebound, rigid Extremities exam: Present: normal inspection, full ROM, normal capillary refill. Absent: tenderness, pedal edema, joint swelling, calf tenderness Back exam: Present: normal inspection Neurological exam: Present: alert, oriented X3, CN II-XII intact Psychiatric exam: Present: normal affect, normal mood Skin exam: Present: warm, dry, intact, normal color. Absent: rash Course Vital Signs 04/09/24 04/10/24 21:49 00:38 Temperature 97.8 F Pulse Rate 87 79 Respiratory 20 18 Rate Blood Pressure 130/82 133/75 O2 Sat by Pulse 98 96 Oximetry - Reevaluation(s) Reevaluation #1: 04/09/24 23:18 Medical records reviewed Reevaluation #2: 04/09/24 23:18 Patient symptoms improved Reevaluation #3: 04/09/24 23:18 Informed of results and questions answered Reevaluation #4: Was pt. sent in by a medical professional or institution (, [facility], [employer], urgent care, hospital, or [facility]...) When possible be specific @ -no Did you speak to anyone other than the patient for history (EMS, parent, family, police, friend...)? What history was obtained from this source @ -no Did you review nursing and triage notes (agree or disagree)? Why? @ -agree Are old charts reviewed (outside hosp., previous admission, EMS record, old EKG, old radiological studies, urgent care reports/EKG's, [facility] records)? Report findings @ -yes Differential Diagnosis (chest pain, altered mental status, abdominal pain women, abdominal pain men, vaginal bleeding, weakness, fever, dyspnea, syncope, headache, dizziness, GI bleed, back pain, seizure, CVA, palpatations, mental health, musculoskeletal)? @ -prior EKG interpreted by me (3pts min.). @ -no X-rays interpreted by me (1pt min.). @ -yes negative for acute disease CT interpreted by me (1pt min.). @ -no U/S interpreted by me (1pt. min.). @ -no What testing was considered but not performed or refused? (CT, X-rays, U/S, labs)? Why? @ -none What meds were considered but not given or refused? Why? @ -none Did you discuss the management of the patient with other professionals (professionals i.e. [facility], [employer], lab, RT, psych nurse, social media developer, search engine marketing specialist, teacher, search and rescue officer, case hardener)? Give summary @ -no Was smoking cessation discussed for >3mins.? @ -no Was critical care preformed (if so, how long)? @ -no Were there social determinants of health that impacted care today? How? (Homelessness, low income, unemployed, alcoholism, drug addiction, transportation, low edu. Level, literacy, decrease access to med. care, assisted, rehab)? @ -none Was there de-escalation of care discussed even if they declined (Discuss DNR or withdrawal of care, Hospice)? DNR status @ -no What co-morbidities impacted this encounter? (DM, HTN, Smoking, COPD, CAD, Cancer, CVA, ARF, Chemo, Hep., AIDS, mental health diagnosis, sleep apnea, morbid obesity)? @ -none Was patient admitted / discharged? Hospital course, mention meds given and route, prescriptions, significant lab abnormalities, going to OR and other pertinent info. @ - 58 female medically cleared for incarceration. Patient is here for fall with right knee pain no acute findings on x-ray patient's pain is controlled she can be discharged Charged Undiagnosed new problem with uncertain prognosis? @ -no Drug Therapy requiring intensive monitoring for toxicity (Heparin, Nitro, Insulin, Cardizem)? @ -no Were any procedures done? @ -no Diagnosis/symptom? @ -Right knee pain Acute, or Chronic, or Acute on Chronic? @ -Acute Uncomplicated (without systemic symptoms) or Complicated (systemic symptoms)? @ -Complicated Side effects of treatment? @ -no Exacerbation, Progression, or Severe Exacerbation? @ -exacerbation Poses a threat to life or bodily function? How? (Chest pain, [place], [place], pneumonia, PE, COPD, DKA, ARF, appy, cholecystitis, CVA, Diverticulitis, Homicidal, Suicidal, threat to staff... and all critical care pts) @ -no Medical Decision Making - Medical Decision Making 58 female medically cleared for incarceration. Patient is here for fall with right knee pain no acute findings on x-ray patient's pain is controlled she can be discharged - Radiology Data Radiology results: report reviewed (X-ray knee is negative for acute traumatic injury), image reviewed Disposition Clinical Impression: Right knee pain, Knee contusion Disposition: HOME SELF-CARE Condition: Good Instructions (If sedation given, give patient instructions): Knee Pain (ED) Is patient prescribed a controlled substance at d/c from ED?: No Referrals: None,Stated [Primary Care Provider] - 1-2 days Time of Disposition: 23:55
[2024-04-09] MEDS: HYDROmorphone 1 MG/ML 1 ML SYRINGE IM STA (23:29)
--- NOTE | 2024-04-10 00:29 | XR ---
EXAM: XR Right Knee, 3 Views CLINICAL HISTORY: ITS.REASON XR Reason: fall TECHNIQUE: Three views of the right knee. COMPARISON: 05/04/2016 FINDINGS: Bones/joints: No fracture or malalignment. Constrained knee arthroplasty. No lucency around the hardware. No joint effusion. Heterotopic ossification along the inferior pole of the patella. IMPRESSION: No acute abnormality.
[2024-04-10 00:39] VITALS: BP 133/75; PULSE 79; RESP 18
== END 2024-04-10 00:39 | disposition home or self-care (01) ==
LOC: EC 21:45
DX: S80.02XA Contusion of left knee, initial encounter (principal); F17.200 Nicotine dependence, unspecified, uncomplicated; Z88.0 Allergy status to penicillin; Z88.8 Allergy status to other drugs, medicaments and biological substances; W01.0XXA Fall on same level from slipping, tripping and stumbling without subsequent striking against object, initial encounter
CPT/HCPCS: 73562; 99284; 96372; J1170